=== PATIENT | female | born 1985 | race Caucasian/White ===

== ENCOUNTER 2017-10-16 11:04 | Emergency (ER) | payer OTHER ==
[~2017-10-16] VITALS: Ht 165.1 cm; Wt 119.3 kg
[~2017-10-16 11:04] MED LIST: AMITRIPTYLINE H10 MG PO; AMITRIPTYLINE H50 MG PO; CYCLOBENZAPRINE10 MG PO; FLUOXETINE HCL40 MG PO; IBUPROFEN800 MG PO; MELOXICAM15 MG PO; ONDANSETRON ODT8 MG PO; PROZAC10 MG PO; [UNRECOGNIZED DRUG - REMARK] PO
[2017-10-16] MEDS ORDERED: ULTRAM50 MG PO (11:20)
--- OUTSIDE RECORDS SUMMARY | 2017-10-16 11:37 | XMS ---
Demographics + + + | Address | [address] | | | [place] [address] | + + + | Preferred Language | Unknown | + + + | Marital Status | Unknown | + + + | Catholic Affiliation | Unknown | + + + | Race | Unknown | + + + | Ethnic Group | Unknown | + + + Author + + + | Author | [facility] | + + + | Organization | [facility] | + + + | Address | [address] | | | [place] [address] | + + + | Phone | | + + + Care Team Providers + + + + | Care Battery Service Technician Name | Role | Phone | + + + + Unavailable | Unavailable | + + + + PROBLEMS + + + + + + + + | Type | Condition | ICD9-CM | [id number] | Onset | Condition | SNOMED | | | | Code | Code | Dates | Status | Code | + + + + + + + + | Problem | Breakthrou | N92.1 | | | Active | [id number] | | | gh | | | | | | | | bleeding | | | | | | + + + + + + + + | Problem | Acute | 462 | | | Active | [id number] | | | pharyngiti | | | | | | | | s NOS | | | | | | + + + + + + + + | Assessment | Strep | J02.0 | | 10 Feb, | Active | [id number] | | | throat | | | 2016 | | | + + + + + + + + | Problem | UTI | 599.0 | | | Active | [id number] | | | [Urinary | | | | | | | | tract | | | | | | | | infection] | | | | | | + + + + + + + + | Assessment | Sore | J02.9 | | Feb, | Active | [id number] | | | throat | | | 2016 | | | + + + + + + + + ALLERGIES + + + + +--------+ | Substance | Reaction | Event Type | Date | Status | + + + + +--------+ | codiene | hives, SOB | Drug Allergy | Feb, | Active | + + + + +--------+ | Penicillin | SOB | Drug Allergy | Feb, | Active | + + + + +--------+ SOCIAL HISTORY No smoking Hx information available PLAN OF CARE VITAL SIGNS + + + + | Height | 64.5 in | 2017-03-08 | + + + + | Weight | 267.9 lbs | 2017-03-08 | + + + + | BMI | 45.27 kg/m2 | 2017-03-08 | + + + + | Temperature | 97.7 degrees Fahrenheit | 2017-03-08 | + + + + | Heart Rate | 100 /min | 2017-03-08 | + + + + | Blood pressure systolic | 135 mm Hg | 2017-03-08 | + + + + | Blood pressure diastolic | 85 mm Hg | 2017-03-08 | + + + + MEDICATIONS + + + + + + + +--------+ | Medicati | Instruct | Dosage | Frequenc | Start | End Date | Duration | Status | | on | ions | | y | Date | | | | + + + + + + + +--------+ | Amitript | Orally | 1 tablet | | | | | Active | | yline | qhs | | | | | | | | HCl 50 | | | | | | | | | mg | | | | | | | | + + + + + + + +--------+ | Nexplano | | | | | | | Active | | n 68 MG | | | | | | | | + + + + + + + +--------+ | Fluoxeti | Orally | 1 | 24h | | | 30 days | Active | | ne HCl | Once a | capsule | | | | | | | 20 MG | day | | | | | | | + + + + + + + +--------+ | Zithroma | Orally | 2 | 24h | 10 Apr, | 15 Apr, | 5 day(s) | Active | | x Z-Erick | Once a | tablets | | 2017 | 2017 | | | | 250 MG | day | on the | | | | | | | | | first | | | | | | | | | day, | | | | | | | | | then 1 | | | | | | | | | tablet | | | | | | | | | daily | | | | | | | | | for 4 | | | | | | | | | days | | | | | | + + + + + + + +--------+ RESULTS + +--------+------+ + | Name | Result | Date | Reference Range | + +--------+------+ + | Strep Gp A Rapid | | | | | (IH) | | | | + +--------+------+ + PROCEDURES + + + + + | Procedure | Date Ordered | Related Diagnosis | Body Site | + + + + + | STREP A ASSAY | March 08, 2017 | | | | W/OPTIC | | | | + + + + + | Est Level III | March 08, 2017 | | | | Intermediate | | | | + + + + + IMMUNIZATIONS No Known Immunizations"
--- OUTSIDE RECORDS SUMMARY | 2017-10-16 11:37 | XMS ---
Demographics + + + | Address | [address] | | | [place] [address] | + + + | Preferred Language | Unknown | + + + | Marital Status | Unknown | + + + | Faith Affiliation | Unknown | + + + | Race | Unknown | + + + | Ethnic Group | Unknown | + + + Author + + + | Author | [facility] | + + + | Organization | [facility] | + + + | Address | [address] | | | [place] [address] | + + + | Phone | | + + + Care Team Providers + + + + | Care Assistant Winemaker Name | Role | Phone | + + + + Unavailable | Unavailable | + + + + PROBLEMS +---------+ + + +--------+ + + | Type | Condition | ICD9-CM | [id number] | Onset | Condition | SNOMED | | | | Code | Code | Dates | Status | Code | +---------+ + + +--------+ + + | Problem | Breakthrou | N92.1 | | | Active | [id number] | | | gh | | | | | | | | bleeding | | | | | | +---------+ + + +--------+ + + | Problem | Acute | 462 | | | Active | [id number] | | | pharyngiti | | | | | | | | s NOS | | | | | | +---------+ + + +--------+ + + | Problem | UTI | 599.0 | | | Active | [id number] | | | [Urinary | | | | | | | | tract | | | | | | | | infection] | | | | | | +---------+ + + +--------+ + + ALLERGIES + + + + +--------+ | Substance | Reaction | Event Type | Date | Status | + + + + +--------+ | codiene | hives, SOB | Drug Allergy | Feb, | Active | + + + + +--------+ | Penicillin | SOB | Drug Allergy | Feb, | Active | + + + + +--------+ | Zithromax | itcing | Drug Allergy | Feb, | Active | + + + + +--------+ SOCIAL HISTORY No smoking Hx information available PLAN OF CARE VITAL SIGNS MEDICATIONS Unknown Medications RESULTS No Results PROCEDURES No Known procedures IMMUNIZATIONS No Known Immunizations"
--- OUTSIDE RECORDS SUMMARY | 2017-10-16 11:38 | XMS ---
Demographics + + + | Address | [address] | | | [place] [address] | + + + | Preferred Language | Unknown | + + + | Marital Status | Unknown | + + + | Protestant Affiliation | Unknown | + + + | Race | Unknown | + + + | Ethnic Group | Unknown | + + + Author + + + | Author | [facility] | + + + | Organization | [facility] | + + + | Address | [address] | | | [place] [address] | + + + | Phone | | + + + Care Team Providers + + + + | Care Bag Loader Machine Operator Name | Role | Phone | + + + + Unavailable | Unavailable | + + + + PROBLEMS +---------+ + + +--------+ + + | Type | Condition | ICD9-CM | [id number] | Onset | Condition | SNOMED | | | | Code | Code | Dates | Status | Code | +---------+ + + +--------+ + + | Problem | Breakthrou | N92.1 | | | Active | [id number] | | | gh | | | | | | | | bleeding | | | | | | +---------+ + + +--------+ + + | Problem | Acute | 462 | | | Active | [id number] | | | pharyngiti | | | | | | | | s NOS | | | | | | +---------+ + + +--------+ + + | Problem | UTI | 599.0 | | | Active | [id number] | | | [Urinary | | | | | | | | tract | | | | | | | | infection] | | | | | | +---------+ + + +--------+ + + ALLERGIES Unknown Allergies SOCIAL HISTORY No smoking Hx information available PLAN OF CARE VITAL SIGNS MEDICATIONS Unknown Medications RESULTS No Results PROCEDURES No Known procedures IMMUNIZATIONS No Known Immunizations"
--- OUTSIDE RECORDS SUMMARY | 2017-10-16 11:38 | XMS ---
Demographics + + + | Address | [address] | | | [place] [address] | + + + | Preferred Language | Unknown | + + + | Marital Status | Unknown | + + + | Scientology Affiliation | Unknown | + + + | Race | Unknown | + + + | Ethnic Group | Unknown | + + + Author + + + | Author | [facility] | + + + | Organization | [facility] | + + + | Address | [address] | | | [place] [address] | + + + | Phone | | + + + Care Team Providers + + + + | Care Piecer Up Name | Role | Phone | + + + + Unavailable | Unavailable | + + + + PROBLEMS +---------+ + + +--------+ + + | Type | Condition | ICD9-CM | [id number] | Onset | Condition | SNOMED | | | | Code | Code | Dates | Status | Code | +---------+ + + +--------+ + + | Problem | Breakthrou | N92.1 | | | Active | [id number] | | | gh | | | | | | | | bleeding | | | | | | +---------+ + + +--------+ + + | Problem | Acute | 462 | | | Active | [id number] | | | pharyngiti | | | | | | | | s NOS | | | | | | +---------+ + + +--------+ + + | Problem | UTI | 599.0 | | | Active | [id number] | | | [Urinary | | | [...]
--- OUTSIDE RECORDS SUMMARY | 2017-10-16 11:38 | XMS ---
Demographics + + + | Address | [address] | | | [place] [address] | + + + | Preferred Language | Unknown | + + + | Marital Status | Unknown | + + + | Worship Affiliation | Unknown | + + + | Race | Unknown | + + + | Ethnic Group | Unknown | + + + Author + + + | Author | [facility] | + + + | Organization | [facility] | + + + | Address | [address] | | | [place] [address] | + + + | Phone | | + + + Care Team Providers + + + + | Care Area Development Manager Name | Role | Phone | + + + + Unavailable | Unavailable | + + + + PROBLEMS +---------+ + + +--------+ + + | Type | Condition | ICD9-CM | [id number] | Onset | Condition | SNOMED | | | | Code | Code | Dates | Status | Code | +---------+ + + +--------+ + + | Problem | Breakthrou | N92.1 | | | Active | [id number] | | | gh | | | | | | | | bleeding | | | | | | +---------+ + + +--------+ + + | Problem | Acute | 462 | | | Active | [id number] | | | pharyngiti | | | | | | | | s NOS | | | | | | +---------+ + + +--------+ + + | Problem | UTI | 599.0 | | | Active | [id number] | | | [Urinary | | | [...]
--- OUTSIDE RECORDS SUMMARY | 2017-10-16 11:38 | XMS ---
Demographics + + + | Address | [address] | | | [place] [address] | + + + | Preferred Language | Unknown | + + + | Marital Status | Unknown | + + + | Yarsani Affiliation | Unknown | + + + | Race | Unknown | + + + | Ethnic Group | Unknown | + + + Author + + + | Author | [facility] | + + + | Organization | [facility] | + + + | Address | [address] | | | [place] [address] | + + + | Phone | | + + + Care Team Providers + + + + | Care Office Services Coordinator Name | Role | Phone | + + + + Unavailable | Unavailable | + + + + PROBLEMS +---------+ + + +--------+ + + | Type | Condition | ICD9-CM | [id number] | Onset | Condition | SNOMED | | | | Code | Code | Dates | Status | Code | +---------+ + + +--------+ + + | Problem | Breakthrou | N92.1 | | | Active | [id number] | | | gh | | | | | | | | bleeding | | | | | | +---------+ + + +--------+ + + | Problem | Acute | 462 | | | Active | [id number] | | | pharyngiti | | | | | | | | s NOS | | | | | | +---------+ + + +--------+ + + | Problem | UTI | 599.0 | | | Active | [id number] | | | [Urinary | | | | | | | | tract | | | | | | | | infection] | | | | | | +---------+ + + +--------+ + + ALLERGIES No Information SOCIAL HISTORY Never Assessed PLAN OF CARE VITAL SIGNS MEDICATIONS Unknown Medications RESULTS No Results PROCEDURES No Known procedures IMMUNIZATIONS No Known Immunizations MEDICAL (GENERAL) HISTORY + + +---------+ | Type | Description | Date | + + +---------+ | Medical History | Bipolar/Depression - no | | | | meds at present | | + + +---------+ | Medical History | Chronic Pelvic pain since | | | | 2009 post last delivery | | + + +---------+ | Medical History | Chronic Low Back pain since | | | | 2009 - x-ray Lumbar spine | | | | 01/11/17: no pathology, | | | | weight gain of 120lbs since | | | | 2009 | | + + +---------+ | Medical History | Morbid Obesity | | + + +---------+ | Medical History | hx/o DM reported by | | | | patient. dx'ed age 20 (on | | | | insulin age [age]) - not on | | | | any medication HbA1c 5.3 | | | | 02/01/17 | | + + +---------+ | Surgical History | x 1 | 2009 | + + +---------+ | Surgical History | Appendectomy (just before | 2008 | | | ) | | + + +---------+ | Surgical History | Tonsilectomy | 1995 | + + +---------+ | Surgical History | Laparoscopic excision of | 02/04/17 | | | endormetriosis, Dr Abarca | | + + +---------+ | Hospitalization History | [facility] re: abdominal pain | 01/27/17 | + + +---------+ | Hospitalization History | [facility] re: | 07/19/17 | | | pharyngitis | | + + +---------+"
--- OUTSIDE RECORDS SUMMARY | 2017-10-16 11:43 | XMS ---
Demographics + + + | Address | [address] | | | [place] [address] | + + + | Preferred Language | Unknown | + + + | Marital Status | Unknown | + + + | Scientology Affiliation | Unknown | + + + | Race | Unknown | + + + | Ethnic Group | Unknown | + + + Author + + + | Author | [facility] | + + + | Organization | [facility] | + + + | Address | [address] | | | [place] [address] | + + + | Phone | [phone] | + + + Care Team Providers + + + + | Care Cost Clerk Name | Role | Phone | + + + + Unavailable | Unavailable | + + + + PROBLEMS + + + + + + + + | Type | Condition | ICD9-CM | [id number] | Onset | Condition | SNOMED | | | | Code | Code | Dates | Status | Code | + + + + + + + + | Problem | Breakthrou | N92.1 | | | Active | [id number] | | | gh | | | | | | | | bleeding | | | | | | + + + + + + + + | Problem | Acute | 462 | | | Active | [id number] | | | pharyngiti | | | | | | | | s NOS | | | | | | + + + + + + + + | Assessment | Encounter | | Z31.69 | 17 Feb, | Active | [id number] | | | for other | | | 2016 | | | | | general | | | | | | | | counseling | | | | | | | | and | | | | | | | | advice on | | | | | | | | procreatio | | | | | | | | n | | | | | | + + + + + + + + | Problem | UTI | 599.0 | | | Active | [id number] | | | [Urinary | | | | | | | | tract | | | | | | | | infection] | | | | | | + + + + + + + + | Assessment | Nexplanon | Z30.46 | | Feb, | Active | [id number] | | | removal | | | 2016 | | | [...] + | Height | 64.5 in | 2017-03-15 | + + + + | Weight | 268.5 lbs | 2017-03-15 | + + + + | BMI | 45.37 kg/m2 | 2017-03-15 | + + + + | Temperature | 98.7 degrees Fahrenheit | 2017-03-15 | + + + + | Heart Rate | 92 /min | 2017-03-15 | + + + + | Blood pressure systolic | 133 mm Hg | 2017-03-15 | + + + + | Blood pressure diastolic | 81 mm Hg | 2017-03-15 | + + + + MEDICATIONS + + + + +--------+ + +--------+ | Medicati | Instruct | Dosage | Frequenc | Start | End Date | Duration | Status | | on | ions | | y | Date | | | | + + + + +--------+ + +--------+ | Amitript | Orally | 1 tablet | | | | | Active | | yline | qhs | | | | | | | | HCl 50 | | | | | | | | | mg | | | | | | | | + + + + +--------+ + +--------+ | Fluoxeti | Orally | 1 | 24h | | | 30 days | Active | | ne HCl | Once a | capsule | | | | | | | 20 MG | day | | | | | | | + + + + +--------+ + +--------+ RESULTS No Results PROCEDURES + + + + + | Procedure | Date Ordered | Related Diagnosis | Body Site | + + + + + | REMOVE DRUG IMPLANT | March 15, 2017 | | | | DEVICE | | | | + + + + + | Est Level III | March 15, 2017 | | | | Intermediate | | | | + + + + + | DOC MEDS VERIFIED | March 15, 2017 | | | | W/PT OR RE | | | | + + + + + | DSCHRG MED/CURRENT | March 15, 2017 | | | | MED MERGE | | | | + + + + + | TOBACCO NON-USER | March 15, 2017 | | | + + + + + IMMUNIZATIONS No Known Immunizations"
== END 2017-10-16 14:36 | disposition home or self-care (01) ==
LOC: ED 11:04
DX: N80.9 Endometriosis, unspecified (principal); R10.2 Pelvic and perineal pain; Z90.49 Acquired absence of other specified parts of digestive tract; Z98.890 Other specified postprocedural states; Z88.0 Allergy status to penicillin; Z88.5 Allergy status to narcotic agent; Z79.899 Other long term (current) drug therapy
CPT/HCPCS: 81001; 84703; 96372; 99283; J1885

== ENCOUNTER 2017-11-09 18:07 | Emergency (ER) | payer OTHER ==
[~2017-11-09] VITALS: Ht 165.1 cm; Wt 125.2 kg
[~2017-11-09 18:07] MED LIST changes: +ULTRAM50 MG PO
[2017-11-09] MEDS ORDERED: DIVALPROEX SOD250 MG PO (18:22)
[2017-11-09] MEDS ORDERED: VENTOLIN HFA18 GM INH (18:23)
[2017-11-09] MEDS ORDERED: NORETHINDRONE AC5 MG PO (18:23)
[2017-11-09] MEDS ORDERED: METHYLPREDNISOLO4 M1 PO (18:25)
[2017-11-09] MEDS ORDERED: ZITHROMAX250 MG PO (18:25)
== END 2017-11-09 18:28 | disposition home or self-care (01) ==
LOC: ED 18:07
DX: J40 Bronchitis, not specified as acute or chronic (principal); Z88.0 Allergy status to penicillin; Z88.5 Allergy status to narcotic agent; Z79.899 Other long term (current) drug therapy; Z90.49 Acquired absence of other specified parts of digestive tract; Z79.52 Long term (current) use of systemic steroids
CPT/HCPCS: 99283

== ENCOUNTER 2017-12-22 21:49 | Emergency (ER) | payer OTHER ==
[~2017-12-22] VITALS: Ht 165.1 cm; Wt 128.4 kg
[~2017-12-22 21:49] MED LIST changes: +DIVALPROEX SOD250 MG PO; +METHYLPREDNISOLO4 M1 PO; +NORETHINDRONE AC5 MG PO; +VENTOLIN HFA18 GM INH; +ZITHROMAX250 MG PO
[2017-12-23] MEDS ORDERED: OMEPRAZOLE20 MG PO (01:15)
== END 2017-12-23 01:26 | disposition home or self-care (01) ==
LOC: ED 21:49
DX: K30 Functional dyspepsia (principal); E11.9 Type 2 diabetes mellitus without complications; Z87.891 Personal history of nicotine dependence; Z88.0 Allergy status to penicillin; Z88.5 Allergy status to narcotic agent
CPT/HCPCS: 74177; 80053; 81001; 83690; 84703; 85025; 96361; 96374; 96375; 99284; J2405; J7030; Q9967

== ENCOUNTER 2018-01-15 12:54 | Emergency (ER) | payer OTHER ==
[~2018-01-15] VITALS: Ht 165.1 cm; Wt 128.4 kg
[~2018-01-15 12:54] MED LIST changes: +OMEPRAZOLE20 MG PO
[2018-01-15] MEDS ORDERED: LAMOTRIGINE25 MG PO (13:25)
[2018-01-15] MEDS ORDERED: SERTRALINE HCL50 MG PO (13:25)
[2018-01-15] MEDS ORDERED: ONDANSETRON ODT8 MG PO (13:25)
[2018-01-15] MEDS ORDERED: NORCO 5-325 TA1 EACH PO (13:26)
[2018-01-15] MEDS ORDERED: TRAZODONE HCL50 MG PO (13:26)
[2018-01-15] MEDS ORDERED: ZOFRAN ODT4 MG PO (15:15)
[2018-01-15] MEDS ORDERED: PERCOCET 5-3251 EACH PO (15:15)
== END 2018-01-15 15:23 | disposition home or self-care (01) ==
LOC: ED 12:54
DX: E28.2 Polycystic ovarian syndrome (principal); E11.9 Type 2 diabetes mellitus without complications; J45.909 Unspecified asthma, uncomplicated; F31.9 Bipolar disorder, unspecified; Z87.891 Personal history of nicotine dependence; Z90.49 Acquired absence of other specified parts of digestive tract; Z90.89 Acquired absence of other organs; Z88.0 Allergy status to penicillin; Z88.5 Allergy status to narcotic agent; Z79.899 Other long term (current) drug therapy
CPT/HCPCS: 76830; 76856; 81001; 84703; 96372; 99284; J1170

== ENCOUNTER 2018-01-20 08:45 | Day surgery (SDC) | payer OTHER ==
[~2018-01-20] VITALS: Ht 165.1 cm; Wt 128.4 kg
[~2018-01-20 08:45] MED LIST changes: +LAMOTRIGINE25 MG PO; +NORCO 5-325 TA1 EACH PO; +PERCOCET 5-3251 EACH PO; +SERTRALINE HCL50 MG PO; +TRAZODONE HCL50 MG PO; +ZOFRAN ODT4 MG PO
--- NOTE | 2018-01-20 14:11 | NUR ---
01/20/18 1411 Cornelia Moraes 1333 PT ARRIVED RESP EVEN AND UNLABORED. PT ASLEEP AND MAINTAIN OWN AIRWAY. REPORT FROM CASTING WHEEL OPERATOR HELPER. 1343 PT WOKE UP AND STARTED CRYING, REPORTS 10/10 PAIN. O2 REMOVED O2 SAT 100%. 1344 PAIN MEDICAIOTN GIVEN PER EMAR. 1345 MD AT BEDSIDE. PT REPORTS NAUSEA. 1346 NAUSEA MEDICAITON PER EMAR. 1350 PT REPORTS NO CHANGE IN PAIN. O2 SAT DECREASED TO 90%, NC PLACED ON PT AT 2L VIA NC. O2 SAT INCREASED TO 95%. PAIN MEDICAITON PER EMAR. 1402 PT REPORTS FEELING NAUSEA AND NEEDING TO VOID 1407 PT ON BEDPAN AND REPORTS A DECREASE IN NAUSEA. 1410 PT OFF BEDPAN, DID NOT VOID. EMAR.
[2018-01-20] MEDS ORDERED: NORCO 5-325 TA1 EACH PO (15:29)
[2018-01-20] MEDS ORDERED: IBUPROFEN800 MG PO (15:33)
--- NOTE | 2018-01-20 16:17 | NUR ---
1445: PATIENT BACK IN DAY SURGERY ROOM. VS CHECKED. PATIENT'S O2 SAT 100%. O2 REMOVED FROM PATIENT. ABDOMINAL SCOPE SITES X 3 WITH SMALL AMOUNTS OF DRAINAGE ON BANDAIDS. PERIPAD IN PLACE WITH NO DRAINAGE. SCDs ON. IV SITE WNL. CALL LIGHT WITHIN REACH. 1510: PATIENT ASSISTED OOB AND TO BATHROOM. VOID WITHOUT DIFFICULTY. GAIT STEADY. PATIENT MEDICATED FOR PAIN WITH 2 TABS OF NORCO. TOLERATED JELLO X 2. 1555: VS CHECKED. PATIENT UP TO BATHROOM INDEPENDENTLY. GAIT STEADY. STATES READY TO GO HOME. IV DC'D WNL. TIP INTACT, DRESSING APPLIED. DISCHARGE INSTRUCTIONS GIVEN TO PATIENT AND MOTHER. PATIENT GETTING DRESSED. 1600: PATIENT DISCHARGED TO HOME WITH MOTHER VIA WHEELCHAIR.
--- NOTE | 2018-01-26 14:20 | OR ---
[facility] [address] [place], [place] [address] Signed DATE OF OPERATION: 01/20/2018 SURGEON: Ry Abarca MD The patient of Dr. Abarca. PREOPERATIVE DIAGNOSES: Pelvic pain and endometriosis. POSTOPERATIVE DIAGNOSES: Pelvic pain and left ovarian adhesions. PROCEDURE: Laparoscopic left salpingo-oophorectomy and cystoscopy. ARTIST AND REPERTOIRE MANAGER: Dr. Nogueira. ANESTHESIA: General. ESTIMATED BLOOD LOSS: 20 mL. SPECIMENS: Left tube and ovary. DRAINS: None. FINDINGS: Normal cervix. Normal size and shaped uterus. The anterior and posterior cul-de-sacs were free of any endometriosis or adhesions. The left ovary was elongated, stretched up cephalad past the pelvic brim with some filmy adhesions along the medial aspect of the ovary onto the left colon. The left fallopian tube was extended along side the ovary, but had no other adhesions. Had normal-appearing fimbriated end. The right tube was normal in length and with normal pink fimbriated end, and no adhesions. Right ovary has normal size and shape without any evidence of endometriosis or adhesions. The rest of the pelvis was free of any masses or adhesions. Electronically Signed By: RY ABARCA MD 01/26/18 1420 PATIENT NAME: ANJEL TABOR OPERATIVE REPORT DATE OF : 89 REPORT #: [id number] PHYSICIAN: RY ABARCA MD PCP: NO PRIMARY CARE PHYSICIAN REPORT IS CONFIDENTIAL AND NOT TO BE RELEASED WITHOUT AUTHORIZATION [facility] [address], [place] [address] Signed DESCRIPTION OF PROCEDURE: The patient was brought to the operating room, placed in supine position. After adequate general anesthesia was obtained, was placed in a dorsal lithotomy position, and prepped and draped in usual sterile fashion. A weighted speculum was placed in the vagina and anterior lip of cervix was grasped with an Allis clamp. Uterine cavity was sounded to 8 cm and the cervix dilated up to #7-Romanian dilator. The Hulka clamp was carefully introduced through the cervix into the uterus and attached to the anterior lip of the cervix after removing the Allis clamp. The Allis clamp and retractor were removed from the vagina. The Martinez catheter was placed in the bladder. Attention was then drawn to the abdomen. A small infraumbilical skin incision was made with a scalpel after injecting the area with 0.5% plain Marcaine. Subcutaneous tissue was dissected with Metzenbaum scissors. Even just below the umbilicus, the tissue was quite deep and it took a while to identify the fascia just below the umbilicus. Once this was identified, it was grasped with hemostats, elevated, nicked with Metzenbaum scissors, and extended in transverse fashion using Metzenbaum scissors. A finger dissection was used to open the peritoneum. This was also somewhat difficult because of how deep this was. Retention stitches of #0 Vicryl suture placed above and below the incision, and then the Nikki cannula and sleeve entered the abdomen and tied in place using retention stitches as the abdomen was filled. The trocar seemed to be too short and so was not completely in the abdomen and was inflating the gas retroperitoneally. So, this was stopped and the gas allowed to escape. More finger dissection was done and the S retractor inserted into the incision and spun in 360 degree fashion showing that we were now in the abdomen, and the S retractor was lifted up to compress the abdominal wall and the sleeve. The trocar and sleeve again placed in the abdomen and tied in place with the retention stitches. The trocar was removed and laparoscope used to enter the abdomen, and the S retractor removed. With laparoscope in the sleeve, the gas could be inflated into the abdomen and so the abdomen was then insufflated with carbon dioxide in this fashion. A small skin incision was made in the left lower quadrant after attempting transillumination making a small skin incision after injecting the area with 0.5% Marcaine and then placing a bladed 5 mm trocar and sleeve into the abdomen under direct visualization. Trocar was removed and blunt probe inserted. A second 5 mm trocar and sleeve were placed on the right side in the same fashion, and the 2nd blunt grasper inserted. The above findings were noted. Two blunt graspers were used to bluntly separate along the avascular adhesions, dropping the colon away from the ovary and elevating the ovary up away from the colon. With much broader space between the ovary and the colon, the infundibulopelvic ligament could be identified and this was also carefully from, and the colon dropped away and bluntly brought down away from the infundibulopelvic ligament. An attempt was made to find the ureter going over the pelvic brim, but because of the adipose tissue could not be seen that the infundibulopelvic ligament was up high in the pelvis and it appeared to be away from the Electronically Signed By: YR ABARCA MD 01/26/18 1420 PATIENT NAME: ANJEL TABOR OPERATIVE REPORT DATE OF : 89 REPORT #: [id number] PHYSICIAN: RY ABARCA MD PCP: NO PRIMARY CARE PHYSICIAN REPORT IS CONFIDENTIAL AND NOT TO BE RELEASED WITHOUT AUTHORIZATION [facility] [address], [place] [address] Signed ureter. The infundibulopelvic ligament was then cauterized in several places adjacent to the ovary taking care to stay away from the bowel. With infundibulopelvic ligament cauterized, the utero-ovarian ligament was then identified, cauterized in several places, and cut. All the cautery and cutting were done with Jesika forceps and the LigaSure bipolar cautery forceps. Once in the utero-ovarian ligament, then the fallopian tube was cauterized and cut. The tube and ovary were gently brought cephalad and medial, and the peritoneum between the tube and ovary and the sidewall were cauterized and cut along the ovary until again reaching the previously cauterized infundibulopelvic ligament. The infundibulopelvic ligament was then isolated with ovary lifted up anteriorly. This pedicle was cauterized again and cut free. A loop of #0 Monocryl was then placed over the infundibulopelvic ligament, tightened in place, tied, cut with laparoscopic scissors. There was some bleeding along the peritoneal edge and this was cauterized along its length with bipolar cautery forceps. At this point, good hemostasis was noted. The entire pelvis was irrigated, suctioned, examined, and noted to have good hemostasis. A 5 mm laparoscope was then placed in the left side and the laparoscope removed, and laparoscopic collection bag was placed through the infraumbilical incision and the left tube and ovary placed in the bag. The bag was tightened and then pulled up to the Clay sleeve and the Nikki cannula removed, and the bag with the tube and ovary also removed through the incision. The cannula was placed back into the abdomen by placing the 10 mm scope through the sleeve and using the scope as the trocar and watching with the 5 mm scope to make sure that this was back in the correct position. Again, the sleeve was held in place with the retention stitches. Entire pelvis again irrigated, suctioned, and examined. Good hemostasis was noted. Evicel was then used to place on the infundibulopelvic ligament, the utero-ovarian ligament, pedicle, and along the peritoneal edge to further help with hemostasis. All instruments were then removed. Final sleeve removed. The fascia was identified and closed with a running stitch of #0 Vicryl suture. The remaining Evicel was placed in the infundibulopelvic incision because of the deepness and there had been some bleeding earlier, but there was none toward the end of the procedure. The 3-0 Vicryl stitch was placed in the deep subcutaneous tissue and the infundibulopelvic ligament. The three skin incisions were closed using 4-0 Vicryl in subcuticular stitches. Nikki cannula was removed and the cervix noted to have good hemostasis. Balloon was drained and the Martinez catheter removed. A 70-degree cystoscope was placed in the urethra and entered the bladder under direct visualization. Sterile water was used as distending medium. Bladder was inspected and both ureteral openings were noted to have good flow of urine. The cystoscope was then removed. The bladder drained. The patient tolerated the procedure well, went to recovery room in good condition. Sponge, needle, and instrument count correct at the end of procedure. The left tube and ovary were sent to Pathology for identification. Electronically Signed By: RY ABARCA MD 01/26/18 1420 PATIENT NAME: ANJEL TABOR OPERATIVE REPORT DATE OF : 89 REPORT #: [id number] PHYSICIAN: RY ABARCA MD PCP: NO PRIMARY CARE PHYSICIAN REPORT IS CONFIDENTIAL AND NOT TO BE RELEASED WITHOUT AUTHORIZATION [address] [place] [address] Signed MD RUTHANN Dougherty/MODL /[id number] Copies: ~ Electronically Signed By: RY ABARCA MD 01/26/18 1420 PATIENT NAME: TABORANJELFRANCO HENSON OPERATIVE REPORT DATE OF : 89 REPORT #: [id number] PHYSICIAN: RY ABARCA MD PCP: NO PRIMARY CARE PHYSICIAN REPORT IS CONFIDENTIAL AND NOT TO BE RELEASED WITHOUT AUTHORIZATION
== END 2018-01-20 16:00 | disposition home or self-care (01) ==
LOC: DS 08:45
PROVIDERS: General Practice
PROC: 0UT64ZZ Resection of Left Fallopian Tube, Percutaneous Endoscopic Approach (ICD-10-PCS; 2018-01-20)
PROC: 0UT14ZZ Resection of Left Ovary, Percutaneous Endoscopic Approach (ICD-10-PCS; principal; 2018-01-20 11:00)
DX: N80.2 Endometriosis of fallopian tube (principal); N83.02 Follicular cyst of left ovary; G89.29 Other chronic pain; M54.5 Low back pain; E66.01 Morbid (severe) obesity due to excess calories; E11.9 Type 2 diabetes mellitus without complications; Z90.49 Acquired absence of other specified parts of digestive tract; Z90.89 Acquired absence of other organs; Z98.890 Other specified postprocedural states; Z88.0 Allergy status to penicillin; Z88.5 Allergy status to narcotic agent; Z68.42 Body mass index [BMI] 45.0-49.9, adult; Z79.899 Other long term (current) drug therapy
CPT/HCPCS: 00910; 88305; 94640; J0131; J0330; J1100; J1885; J2250; J2370; J2405; J2704; J3010; J3475; J7120

== ENCOUNTER 2018-01-22 17:06 | Emergency (ER) | payer OTHER ==
[~2018-01-22] VITALS: Ht 165.1 cm; Wt 128.4 kg
[2018-01-22] MEDS ORDERED: PERCOCET 5-3251 EACH PO ×2 (17:27→19:29)
== END 2018-01-22 19:49 | disposition home or self-care (01) ==
LOC: ED 17:06
DX: G89.18 Other acute postprocedural pain (principal); R10.32 Left lower quadrant pain; E11.9 Type 2 diabetes mellitus without complications; F31.9 Bipolar disorder, unspecified; J45.909 Unspecified asthma, uncomplicated; Z87.891 Personal history of nicotine dependence; Z88.0 Allergy status to penicillin; Z88.5 Allergy status to narcotic agent; Z88.1 Allergy status to other antibiotic agents; Z79.899 Other long term (current) drug therapy; Z90.721 Acquired absence of ovaries, unilateral
CPT/HCPCS: 76830; 76856; 81001; 85025; 96374; 96375; 99284; J1170; J1885; J2405; J7030

== ENCOUNTER 2018-04-27 17:35 | Emergency (ER) | payer OTHER ==
[~2018-04-27] VITALS: Ht 165.1 cm; Wt 117.9 kg
[2018-04-27] MEDS ORDERED: TRAMADOL HCL50 MG PO (23:35)
== END 2018-04-27 23:47 | disposition home or self-care (01) ==
LOC: ED 17:35
DX: R10.2 Pelvic and perineal pain (principal); E11.9 Type 2 diabetes mellitus without complications; F31.9 Bipolar disorder, unspecified; J45.909 Unspecified asthma, uncomplicated; Z87.891 Personal history of nicotine dependence; Z88.0 Allergy status to penicillin; Z88.5 Allergy status to narcotic agent; Z88.1 Allergy status to other antibiotic agents; Z79.899 Other long term (current) drug therapy
CPT/HCPCS: 74176; 80053; 81001; 83690; 84703; 85025; 99284

== ENCOUNTER 2018-06-22 19:28 | Emergency (ER) | payer OTHER ==
[~2018-06-22] VITALS: Ht 165.1 cm; Wt 117.9 kg
[~2018-06-22 19:28] MED LIST changes: +TRAMADOL HCL50 MG PO
[2018-06-22] MEDS ORDERED: OXCARBAZEPINE150 MG PO (19:47)
== END 2018-06-22 23:04 | disposition home or self-care (01) ==
LOC: ED 19:28
DX: O20.0 Threatened abortion (principal); O99.331 Smoking (tobacco) complicating pregnancy, first trimester; F17.200 Nicotine dependence, unspecified, uncomplicated; O99.341 Other mental disorders complicating pregnancy, first trimester; F31.9 Bipolar disorder, unspecified; O99.511 Diseases of the respiratory system complicating pregnancy, first trimester; J45.909 Unspecified asthma, uncomplicated; Z3A.01 Less than 8 weeks gestation of pregnancy; Z88.0 Allergy status to penicillin; Z88.5 Allergy status to narcotic agent; Z88.1 Allergy status to other antibiotic agents; Z79.899 Other long term (current) drug therapy
CPT/HCPCS: 76801; 76817; 80053; 84702; 85025; 86900; 86901; 99284

== ENCOUNTER 2018-08-11 21:44 | Emergency (ER) | payer OTHER ==
[~2018-08-11] VITALS: Ht 165.1 cm; Wt 115.2 kg
--- OUTSIDE RECORDS SUMMARY | ~2018-08-11 | XMS | Clinical Summary ---
Demographics + + + | Address | [address] | | | [place] [address] | + + + | Home Phone | | + + + | Preferred Language | Unknown | + + + | Marital Status | Single | + + + | Restorationist Affiliation | Unknown | + + + | Race | Unknown | + + + | Ethnic Group | Unknown | + + + Author + + + | Author | [facility] | | | and [place] | + + + | Organization | [facility] | | | and [place] | + + + | Address | Unknown | + + + | Phone | Unavailable | + + + Support + + +---------+ + | Name | Relationship | Address | Phone | + + +---------+ + | Milana Vale | ECON | Unknown | | + + +---------+ + Care Team Providers + +------+ + | Care Arc Cutter Plasma Arc Name | Role | Phone | + +------+ + | Liliana Ibrahim MD | PP | | + +------+ + Allergies + + + + + + | Active Allergy | Reactions | Severity | Noted | Comments | | | | | Date | | + + + + + + | Codeine | Shortness Of Breath | High | 06/18/20 | | | | | | 17 | | + + + + + + | Ibuprofen | | | 05/01/20 | Ulcers | | | | | 18 | | + + + + + + | Penicillins | Hives | | 06/18/20 | | | | | | 17 | | + + + + + + | Valproic Acid | Itching | Low | 12/31/19 | | | | | | 18 | | + + + + + + Current Medications + + +---------+---------+------+------+-------+ | Prescription | Sig. | Disp. | Refills | Star | End | Statu | | | | | | t | Date | s | | | | | | Date | | | + + +---------+---------+------+------+-------+ | albuterol 90 | Inhale 2 puffs into | 1 | 0 | 10/2 | | Activ | | mcg/puff inhaler | the lungs every 4 | Inhaler | | 8 | | e | | | hours as needed for | | | 17 | | | | | Wheezing or | | | | | | | | Shortness of Breath. | | | | | | | | Use with spacer | | | | | | | | device. | | | | | | + + +---------+---------+------+------+-------+ | sertraline | Take 25 mg by mouth | | | | | Activ | | (ZOLOFT) 25 mg | Daily. | | | | | e | | tablet | | | | | | | + + +---------+---------+------+------+-------+ | lamoTRIgine | take 1 tablet by | | 0 | 10/30 | | Activ | | (LAMICTAL) 25 mg | mouth once daily AT | | | 220 | | e | | tablet | 2ND WEEK AND | | | 17 | | | | | AFTERWARDS TAKE 2 | | | | | | | | tablets EACH DAY | | | | | | + + +---------+---------+------+------+-------+ | beclomethasone | Inhale 2 puffs into | | | 10/29 | 10/29 | Activ | | (QVAR) 40 mcg/puff | the lungs. | | | 8/20 | 8/20 | e | | inhaler | | | | 17 | 18 | | + + +---------+---------+------+------+-------+ | omeprazole | take 1 capsule by | | 0 | 01/2 | | Activ | | (PRILOSEC) 20 mg | mouth once daily | | | 520 | | e | | capsule | | | | 18 | | | + + +---------+---------+------+------+-------+ | | take 1 to 2 tablets | | 0 | 02/1 | | Activ | | oxyCODONE-acetaminop | by mouth every 6 | | | 720 | | e | | hen (PERCOCET) 5-325 | hours if needed for | | | 18 | | | | mg per tablet | pain | | | | | | + + +---------+---------+------+------+-------+ | sertraline | take 1 tablet by | | 0 | 01/3 | | Activ | | (ZOLOFT) 50 mg | mouth once daily | | | 0/20 | | e | | tablet | | | | 18 | | | + + +---------+---------+------+------+-------+ | traZODone | Take 50 mg by mouth. | | | 12/2 | | Activ | | (DESYREL) 50 mg | | | | 7/20 | | e | | tablet | | | | 17 | | | + + +---------+---------+------+------+-------+ | estradiol | Take 2 mg by mouth | | | | | Activ | | (ESTRACE) 2 MG | Daily. | | | | | e | | tablet | | | | | | | + + +---------+---------+------+------+-------+ | QUEtiapine | Take 50 mg by mouth | | | | | Activ | | (SEROQUEL) 50 MG | 2 times daily. | | | | | e | | tablet | | | | | | | + + +---------+---------+------+------+-------+ | traMADol (ULTRAM) | Take 50 mg by mouth | | | | | Activ | | 50 mg tablet | every 6 hours as | | | | | e | | | needed. | | | | | | + + +---------+---------+------+------+-------+ Active Problems No known active problems Encounters +--------+ + + + + | Date | Type | Specialty | Care Team | Description | +--------+ + + + + | 06/23/ | Emergency | | Beau Aquino, | Abnormal vaginal | | 2017 | | | Santosh Payne | bleeding (Primary | | | | | MD Rhona | Dx); Pelvic cramping | +--------+ + + + + from Last 3 Months Social History + +-------+ +--------+------+ | Tobacco Use | Types | Packs/Day | Years | Date | | | | | Used | | + +-------+ +--------+------+ | Never Smoker | | | | | + +-------+ +--------+------+ + +---+---+---+ | Smokeless Tobacco: | | | | | Never Used | | | | + +---+---+---+ + + +---------+ + | Alcohol Use | Drinks/We | oz/Week | Comments | | | ek | | | + + +---------+ + | No | | | | + + +---------+ + + + + | Sex Assigned at | Date Recorded | | | | + + + | Not on file | | + + + Last Filed Vital Signs + + + + | Vital Sign | Reading | Time Taken | + + + + | Blood Pressure | 108/85 | 06/23/2018 213 PDT | + + + + | Pulse | 86 | 06/23/20182029 PDT | + + + + | Temperature | 37.3 C (99.1 F) | 06/23/20182004 PDT | + + + + | Respiratory Rate | 18 | 06/23/20182004 PDT | + + + + | Oxygen Saturation | 96% | 06/23/20182029 PDT | + + + + | Inhaled Oxygen | - | - | | Concentration | | | + + + + | Weight | 113.4 kg (250 lb) | 06/23/20182004 PDT | + + + + | Height | 165.1 cm (5' 5") | 06/23/20182004 PDT | + + + + | Body Mass Index | 41.6 | 06/23/20182004 PDT | + + + + Plan of Treatment + + + + + | Health Maintenance | Due Date | Last Done | Comments | + + + + + | Cervical Cancer | | | | | Screening (Pap) | 8 | | | + + + + + | Vaccine: Influenza | | 09/29/2017 | | | (#1) | 8 | | | + + + + + | Vaccine: | | 09/29/2017 | | | Dtap/Tdap/Td (2 - | 7 | | | | Td) | | | | + + + + + Procedures + +--------+ + + + | Procedure Name | Priori | Date/Time | Associated Diagnosis | Comments | | | ty | | | | + +--------+ + + + | URINALYSIS WITH | STAT | 06/23/2018 | | Results for this | | MICROSCOPIC WITH | | 2217 PDT | | procedure are in the | | CULTURE IF INDICATED | | | | results section. | + +--------+ + + + | HCG, SERUM, QUANT | STAT | 06/23/2018 | | Results for this | | | | 2057 PDT | | procedure are in the | | | | | | results section. | + +--------+ + + + | COMPREHENSIVE | STAT | 06/23/2018 | | Results for this | | METABOLIC PANEL | | 2057 PDT | | procedure are in the | | | | | | results section. | + +--------+ + + + | CBC W/AUTO | STAT | 06/23/2018 | | Results for this | | DIFFERENTIAL | | 2057 PDT | | procedure are in the | | | | | | results section. | + +--------+ + + + | ED INFORMATION | Routin | 06/23/2018 | | | | EXCHANGE | e | 1950 PDT | | | + +--------+ + + + +---+--------+ | | | | | Proced | | | ure | | | Note - | | | Silverio, | | | Lab In | | | | | | Hlseve | | | n - | | | | | | 2017 | | | 1949 | | | PDT | | | Format | | | ting | | | of | | | this | | | note | | | may be | | | | | | differ | | | ent | | | from | | | the | | | origin | | | al.[email or web address] | | | E19:[id number] | | | ANAY | | | | | | [id number] | | | [id number] | | | This | | | patien | | | t has | | | regist | | | ered | | | at the | | | | | | Provid | | | ence | | | [facility] | [facility] | | l | | | Center | | | | | | Emerge | | | ncy | | | Depart | | | ment | | | For | | | more | | | inform | | | ation | | | visit: | | | | | | https: | | | //secu | | | [email or web address] | | | ecarep | | | [email or web address] | | | [email or web address] | | | ent/89 | | | [id number] | | | -54d4- | | | 45e7-9 | | | [id number] | | | [id number] | | | [email or web address] | | | Securi | | | ty | | | Events | | | No | | | recent | | | | | | Securi | | | ty | | | Events | | | | | | curren | | | tly on | | | | | | fileED | | | Care | | | Guidel | | | inesTh | | | ere | | | are | | | curren | | | tly no | | | ED | | | Care | | | Guidel | | | taj | | | in | | | SALIMA | | | for | | | this | | | patien | | | t. | | | Please | | | check | | | your | | | facili | | | ty's | | | medica | | | l | | | record | | | s | | | system | | | .Recen | | | t | | | Emerge | | | ncy | | | Depart | | | ment | | | Visit | | | Summar | | | yAdmit | | | Date | | | Facili | | | ty | | | City | | | State | | | Type | | | Major | | | Type | | | Diagno | | | ses or | | | Chief | | | | | | Compla | | | int | | | Nate | | | 26, | | | 2018 | | | Provid | | | ence | | | [facility] | [place] | | | [place] | | | Emerge | | | ncy | | | Emerge | | | ncy | | | | | | vagina | | | l | | | bleed | | | Nate | | | 25, | | | 2018 | | | [facility] [place] [facility] | | | [place] | | | [place] | | | Emerge | | | ncy | | | Emerge | | | ncy | | | Chief | | | Compla | | | int: | | | VAGINA | | | L | | | BLEEDI | | | NG/1 | | | MONTH | | | PREG | | | Ulices 3, | | | 2018 | | | Provid | | | ence | | | [facility] | [facility] | [place] | | | [place] | | | Emerge | | | ncy | | | Emerge | | | ncy | | | rt | | | side | | | back | | | pain | | | | | | Abdomi | | | nal | | | Pain | | | | | | Flank | | | Pain | | | | | | Unspec | | | ified | | | abdomi | | | nal | | | pain | | | May | | | 31, | | | 2018 | | | Provid | | | ence | | | [facility] | [facility] | [place] | | | [place] | | | Emerge | | | ncy | | | Emerge | | | ncy | | | | | | Pelvic | | | Pain | | | | | | Abdomi | | | nal | | | Pain | | | | | | Pelvic | | | and | | | perine | | | al | | | pain | | | May | | | 30, | | | 2018 | | | [facility] [place] [facility] | | | [place] | | [place] | | | Emerge | | | ncy | | | Emerge | | | ncy | | | | | | Pelvic | | | and | | | perine | | | al | | | pain | | | | | | Unspec | | | ified | | | asthma | | | , | | | uncomp | | | licate | | | d | | | Type 2 | | | | | | diabet | | | es | | | mellit | | | us | | | withou | | | t | | | compli | | | cation | | | s | | | Bipola | | | r | | | disord | | | er, | | | unspec | | | ified | | | | | | Allerg | | | y | | | status | | | to | | | other | | | antibi | | | otic | | | agents | | | | | | status | | | | | | Person | | | al | | | histor | | | y of | | | nicoti | | | ne | | | depend | | | ence | | | | | | Allerg | | | y | | | status | | | to | | | penici | | | llin | | | | | | Allerg | | | y | | | status | | | to | | | narcot | | | ic | | | agent | | | status | | | | | | Other | | | long | | | term | | | (curre | | | nt) | | | drug | | | therap | | | y May | | | 17, | | | 2018 | | | [facility] | | | [facility] | | | rd | | | [facility] | | | Care | | | System | | | | | [facility] [place] | | | Emerge | | | ncy | | | Emerge | | | ncy | | | Chief | | | Compla | | | int: | | | KIDNEY | | | PAIN | | | E.D. | | | Visit | | | Count | | | (12 | | | mo.)Fa | | | cility | | | | | | Visits | | | Low | | | Acuity | | | Good | | | [facility] | | | rd | | | Health | | | Care | | | System | | | 3 0 | | | Provid | | | ence | | | St. | | | [facility] | | | Medica | | | l | | | Center | | | 10 0 | | | [facility] [place] [facility] | | y | | | Hospit | | | al 7 0 | | | Total | | | 20 0 | | | Note: | | | Visits | | | | | | indica | | | te | | | total | | | known | | | visits | | | . | | | Medica | | | id Low | | | | | | Acuity | | | Dx | | | are | | | the | | | number | | | of | | | primar | | | y | | | diagno | | | ses on | | | the | | | Medica | | | id's | | | Low | | | Acuity | | | dx | | | list. | | | | | | Recent | | | | | | Inpati | | | ent | | | Visit | | | [facility] | | | yNo | | | record | | | ed | | | inpati | | | ent | | | visits | | | . PDMP | | | | | | Report | | | PDMP | | | query | | | found | | | no | | | report | | | .Care | | | Provid | | | ersPro | | | vider | | | PRC | | | Type | | | Phone | | | Fax | | | Servic | | | e | | | Dates | | | TACHEN | | | Y, | | | HEATHE | | | R, MD | | | Family | | | | | | Medici | | | ne | | | (509) | | | [phone] | | | 50 | | | (509) | | | [phone] | | | 47 Nate | | | 26, | | | 2018 - | | | | | | Curren | | | t | | | Alfredo | | | o | | | [place] | | | - | | | [facility] | | | ions, | | | [facility] | | | Case | | | or | | | Care | | | Manage | | | r | | | (541) | | | [phone] | | | 04 | | | (541) | | | [phone] | | | 10 | | | Curren | | | t | | | TACHEN | | | Y, | | | HEATHE | | | R | | | Primar | | | y Care | | | (509) | | | | | | [phone] | | | 50 | | | (509) | | | 524-53 | | | 61 | | | Curren | | | t | | | Care | | | Histor | | | yBehav | | | ioral2 | | | /26/18 | | | 12:00 | | | AM | | | [facility] [place] [facility] | | [facility] | | | alCare | | | | | | Recomm | | | endati | | | on:Thi | | | s | | | patien | | | t has | | | had 5 | | | or | | | more | | | Emerge | | | ncy | | | Depart | | | ment | | | visits | | | in | | | the | | | last | | | 12 | | | months | | | .Patie | | | nt | | | requir | | | es | | | educat | | | ion on | | | the | | | scope | | | and | | | purpos | | | e of | | | the ED | | | as an | | | acute | | | care | | | provid | | | er not | | | a | | | Primar | | | y Care | | | | | | Provid | | | er and | | | | | | should | | | not | | | be | | | utiliz | | | ed for | | | | | | chroni | | | c | | | condit | | | ions.I | | | f | | | patien | | | t | | | return | | | s to | | | ED | | | please | | | | | | contac | | | t | | | Commun | | | ity | | | Health | | | | | | Worker | | | , | | | Fela | | | at | | | [phone] | | | [phone] | | | .These | | | are | | | guidel | | | taj | | | and | | | the | | | provid | | | er | | | should | | | | | | exerci | | | se | | | clinic | | | al | | | judgme | | | nt | | | when | | | provid | | | ing | | | care.M | | | edical | | | /Surgi | | | cal5/3 | | | 1/18 | | | 12:00 | | | AM | | | [facility] [place] | | [facility] | | | alCare | | | | | | Recomm | | | endati | | | on: | | | [facility] | | | spoke | | | to Dr | | | Brunsm | | | an | | | office | | | . | | | Patien | | | t has | | | cancel | | | led | | | multip | | | le | | | appoin | | | tments | | | with | | | OBGYN | | | office | | | , | | | theref | | | ore | | | has | | | not | | | receiv | | | ed | | | inject | | | ions | | | for | | | pain | | | manage | | | ment. | | | | | | Patien | | | t has | | | not | | | seen | | | PCP | | | office | | | and | | | needs | | | to see | | | PCP | | | for | | | pain | | | manage | | | ment. | | | USE | | | EXTREM | | | E | | | CAUTIO | | | N IN | | | GIVING | | | | | | NARCOT | | | ICS TO | | | THIS | | | PATIEN | | | T. | | | Avoid | | | Discha | | | rge | | | Narcot | | | ic | | | prescr | | | iption | | | s if | | | at all | | | | | | possib | | | le. | | | Please | | | use | | | clinic | | | al | | | judgem | | | ent.Th | | | is | | | patien | | | t has | | | had 5 | | | or | | | more | | | Emerge | | | ncy | | | Depart | | | ment | | | visits | | | in | | | the | | | last | | | 12 | | | months | | | .Patie | | | nt | | | requir | | | es | | | educat | | | ion on | | | the | | | scope | | | and | | | purpos | | | e of | | | the ED | | | as an | | | acute | | | care | | | provid | | | er not | | | a | | | Primar | | | y Care | | | | | | Provid | | | er and | | | | | | should | | | not | | | be | | | utiliz | | | ed for | | | | | | chroni | | | c | | | condit | | | ions.I | | | f | | | patien | | | t | | | return | | | s to | | | ED | | | please | | | | | | contac | | | t | | | Commun | | | ity | | | Health | | | | | | Worker | | | , | | | Fela | | | at | | | [phone] | | | [phone] | | | .These | | | are | | | guidel | | | taj | | | and | | | the | | | provid | | | er | | | should | | | | | | exerci | | | se | | | clinic | | | al | | | judgme | | | nt | | | when | | | provid | | | ing | | | care.C | | | riteri | | | a met | | | 4 | | | visits | | | in | | | 60Know | | | n | | | Aliase | | | sNo | | | known | | | aliase | | | s. The | | | above | | | | | | inform | | | ation | | | is | | | provid | | | ed for | | | the | | | sole | | | purpos | | | e of | | | patien | | | t | | | treatm | | | ent. | | | Use of | | | this | | | inform | | | ation | | | beyond | | | the | | | terms | | | of | | | Data | | | Sharin | | | g | | | Memora | | | ndum | | | of | | | Unders | | | tandin | | | g and | | | Licens | | | e | | | Agreem | | | ent is | | | | | | prohib | | | ited. | | | In | | | certai | | | n | | | cases | | | not | | | all | | | visits | | | may | | | be | | | repres | | | ented. | | | | | | Consul | | | t the | | | aforem | | | ention | | | ed | | | facili | | | ties | | | for | | | additi | | | onal | | | inform | | | ation. | | | 2018 | | | [facility] | | | tive | | | Medica | | | l | | | Techn[employer] | | | logies | | | , [employer] | | | - | | | Salt | | | Rosario | | | [facility], | | | ID - | | | [email or web address] | | | ollect | | | ivemed | | | icalte | | | [email or web address] | | | | +---+--------+ + +---+ +---+ + | IMAGING REPORT - | | 06/22/2018 | | Results for this | | EXTERNAL SCAN | | 0000 PDT | | procedure are in the | | | | | | results section. | + +---+ +---+ + from Last 3 Months Results Urinalysis with Microscopic with Culture if Indicated (06/23/2018 2217) + + + + + | Component | Value | Ref Range | Performed At | + + + + + | COLOR | Yellow | Light Yellow, | [facility] | | | | Yellow, Straw | [facility] | | | [facility] | | | | | [facility] | + + + + + | CLARITY | Hazy (A) | Clear | [facility] | | | | | [facility] | + + + + + | PH UA | 6.0 | 5.0 - 8.0 | [facility] | | | | | [facility] | [facility] | + + + + + | Specific [place] | 1.027 | 1.001 - 1.030 | [facility] | | | | | [facility] | | | | | [facility] | + + + + + | PROTEIN UA | Negative | Negative | [facility] | | | | [facility] | | | [facility] | + + + + + | BLOOD UA | Small (A) | Negative | [facility] | | | | [facility] | | | | | [facility] | + + + + + | GLUCOSE UA | Negative | Negative | [facility] | | | | [facility] | | | | | [facility] | + + + + + | KETONES UA | Negative | Negative | [facility] | | | | | [facility] | + + + + + | BILIRUBIN UA | Negative | Negative | [facility] | | | | [facility] | | | | | [facility] | + + + + + | NITRITE UA | Negative | Negative | [facility] | | | | [facility] | | | | | [facility] | + + + + + | LEUKOCYTES ESTERASE | Negative | Negative | [facility] | | UA | | | [facility] | | | [facility] - | | | | | [facility] | + + + + + | UROBILINOGEN UA | Negative | 0.2 mg/dL, 1.0 | [facility] | | | | mg/dL, Negative | [facility] | | | [facility] | | | | | [facility] | + + + + + | WBC UA | 0-2 | 0 - 2 /HPF | [facility] | | | | | [facility] | | | | | [facility] | + + + + + | RBC UA | 0-2 | 0 - 2 /HPF | [facility] | | | | [facility] - | | | | | [facility] | + + + + + | SQUAMOUS EPITHELIAL | >100 (A) | 0 - 2 /LPF | [facility] | | [facility] | [facility] - | | | | | [facility] | + + + + + | BACTERIA UA | 1+ (A) | Negative /HPF | [facility] | | | | | [facility] | [facility] | [facility] - | | | | | [facility] | + + + + + | MUCUS UA | Present (A) | Negative /LPF | [facility] | | | | | [facility] - | | | | | [facility] | + + + + + | URINE COMMENT | Urine Culture Not | | [facility] | | | Indicated | | [facility] | | | [facility] - | | | | | [facility] | + + + + + + + | Specimen | + + | Urine - Urine, Clean | | Catch | + + + + + + + | Performing | Address | City/State/Zipcode | Phone Number | | Organization | | | | + + + + + | [facility] | [address] | [place] | [phone] | | [facility] | | [address] | | | - LABORATORY | | | | + + + + + | [facility] | [address] | [place] | | | [facility] | | [address] | | | - LABORATORY | | | | + + + + + CBC w/ Auto Differential (06/23/20182057) + + + + + | Component | Value | Ref Range | Performed At | + + + + + | WBC | 11.5 (H) | 4.0 - 11.0 K/uL | [facility] | | | | | [facility] | | | | | [facility] - | | | | | LABORATORY | + + + + + | RBC | 4.68 | 3.70 - 5.20 M/uL | [facility] | [facility] | | | | | [facility] - | | | | | LABORATORY | + + + + + | Hgb | 13.0 | 11.5 - 16.0 g/dL | [facility] | | | | | [facility] | [facility] - | | | | | [facility] | + + + + + | Hct | 39.2 | 34.0 - 47.0 % | [facility] | | | | | [facility] | | | [facility] - | | | | | [facility] | + + + + + | MCV | 83.9 | 83.0 - 101.0 fL | [facility] | | | | | [facility] | | | | [facility] - | | | | | [facility] | + + + + + | MCH | 27.9 (L) | 28.0 - 35.0 pg | [facility] | | | | | [facility] | | | | [facility] - | | | | | [facility] | + + + + + | MCHC | 33.2 | 32.0 - 36.0 g/dL | [facility] | | | | | [facility] | | | | [facility] - | | | | | [facility] | + + + + + | RDW-CV | 15.0 (H) | <15.0 % | [facility] | | | | | [facility] | | | | | [facility] - | | | | | [facility] | + + + + + | Platelet Count | 258 | 140 - 440 K/uL | [facility] | | | | | [facility] | | | [facility] - | | | | | [facility] | + + + + + | MPV | 8.0 | fL | [facility] - | | | | | LABORATORY | + + + + + | % Neutrophils | 72.4 | 45.0 - 82.0 % | [facility] - | | | | | LABORATORY | + + + + + | % Lymphocytes | 21.0 | 20.0 - 45.0 % | [facility] | | [facility] - | | | | | LABORATORY | + + + + + | % Monocytes | 4.8 | 4.0 - 12.0 % | [facility] | | [facility] - | | | | | LABORATORY | + + + + + | % Eosinophils | 1.2 | 0.0 - 5.0 % | [facility] - | | | | | LABORATORY | + + + + + | % Basophils | 0.6 | 0.0 - 1.0 % | [facility] - | | | | | LABORATORY | + + + + + | Absolute Neutrophils | 8.40 | 1.80 - 8.50 K/uL | [facility] - | | | | | LABORATORY | + + + + + | Absolute Lymphocytes | 2.40 | 0.60 - 3.20 K/uL | [facility] | [facility] - | | | | | LABORATORY | + + + + + | Absolute Monocytes | 0.60 | 0.00 - 1.00 K/uL | [facility] | | | [facility] - | | | | | LABORATORY | + + + + + | Absolute Eosinophils | 0.10 | 0.00 - 0.40 K/uL | [facility] | [facility] | | | | [facility] - | | | | | LABORATORY | + + + + + | Absolute Basophils | 0.10 | 0.00 - 0.10 K/uL | [facility] | | | | | [facility] - | | | | | LABORATORY | + + + + + + + | Specimen | + + | Blood | + + + + + + + | Performing | Address | City/State/Zipcode | Phone Number | | Organization | | | | + + + + + | [facility] | [address] | [place] | [phone] | | [facility] | | [address] | | | - LABORATORY | | | | + + + + + | [facility] | [address] | [place] | | | [facility] | | [address] | | | - LABORATORY | | | | + + + + + HCG, Serum, Quant (06/23/20182057) + + + + + | Component | Value | Ref Range | Performed At | + + + + + | hCG Quant, Serum | 0Comment: RE[facility]ENCE | 0 - 1 mIU/mL | [facility] | | RANGE: | | [facility] | | | | | [facility] - | | | B-hCG | | LABORATORY | | | LEVELGestational | | | | | Age Expected | | | | | hCG | | | | | Values | | | | | | | | | | -----0.2-1 | | | | | week | | | | | 5-50 | | | | | mIU/mL1-2 | | | | | weeks | | | | | 50-500 | | | | | mIU/mL2-3 | | | | | weeks | | | | | 100-5,000 | | | | | mIU/mL3-4 | | | | | weeks | | | | | 500-10,000 | | | | | mIU/mL4-5 | | | | | weeks | | | | | 1,000-50,000 mIU/mL5-6 | | | | | weeks | | | | | 10,000-100,000 mIU/mL6-8 | | | | | weeks | | | | | 15,000-200,000 mIU/mL2-3 | | | | | | | | | | months 10 | | | | | ,000-100,000 mIU/mL | | | + + + + + + + | Specimen | + + | Blood | + + + + + + + | Performing | Address | City/State/Zipcode | Phone Number | | Organization | | | | + + + + + | [facility] | [address] | [place] | [phone] | | [facility] | | [address] | | | - LABORATORY | | | | + + + + + | [facility] | [address] | [place] | | | [facility] | | [address] | | | - LABORATORY | | | | + + + + + Comprehensive Metabolic Panel (06/23/20182057) + + + + + | Component | Value | Ref Range | Performed At | + + + + + | NA | 143 | 136 - 149 mmol/L | [facility] | | | | | CENTER - | | | | | LABORATORY | + + + + + | K | 3.4 (L) | 3.5 - 5.1 mmol/L | [facility] | | | | | C[facility] - | | | | | LABORATORY | + + + + + | CL | 109 | 98 - 109 mmol/L | [facility] | | | | | C[facility] - | | | | | LABORATORY | + + + + + | CO2 | 27 | 24 - 31 mmol/L | [facility] | | [facility] | | | | | C[facility] - | | | | | LABORATORY | + + + + + | ANION GAP | 7 | 3 - 16 mmol/L | [facility] | | [facility] | | | | | [facility] - | | | | | LABORATORY | + + + + + | GLUCOSE | 98 | 70 - 109 mg/dL | [facility] - | | | | | LABORATORY | + + + + + | BUN | 10 | 7 - 18 mg/dL | [facility] | | | | | CENTER - | | | | | LABORATORY | + + + + + | Creatinine, | 0.91 | 0.60 - 1.30 mg/dL | [facility] | | Serum/Plasma | | | [facility] | | | | | CENTER - | | | | | LABORATORY | + + + + + | eGFR if not | >60Comment: GLOMERULAR | >=60 mL/min/1.73m2 | [facility] | | [place] | FILTRATION | | [facility] | | | RATE,ESTIMATED mL/min | | CENTER - | | | /1.70b3Prjw than 60 | | LABORATORY | | | Chronic kidney | | | | | disease,if found over a | | | | | 3-month period.Less than | | | | | 15 Kidney | | | | | failureFor | | | | | Americans,multiply the | | | | | calculated GFR by 1.21. | | | | | | | | + + + + + | CALCIUM | 8.4 | 8.3 - 10.5 mg/dL | [facility] - | | | | | LABORATORY | + + + +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
--- OUTSIDE RECORDS SUMMARY | ~2018-08-11 | XMS | Encounter Summary ---
Demographics + + + | Address | [address] | | | [place] [address] | + + + | Home Phone | | + + + | Preferred Language | Unknown | + + + | Marital Status | Single | + + + | Anabaptism Affiliation | Unknown | + + + | Race | Unknown | + + + | Ethnic Group | Unknown | + + + Author + + + | Author | [facility] | | | and [place] | + + + | Organization | [facility] | | | and [...] Team Providers + +------+ + | Care Logistics Specialist Name | Role | Phone | + +------+ + | Liliana Ibrahim MD | PCP | | + +------+ + Reason for Visit + + + | Reason | Comments | + + + | Vaginal Bleeding | | + + + Encounter Details +--------+ + + + + | Date | Type | Department | Care Team | Description | +--------+ + + + + | 06/23/ | Emergency | [facility] | Lanre Aquinon S, | Abnormal vaginal | | 2018 | | [facility] | [address] | bleeding (Primary | | | | CENTER [address] | [place], [place] | Dx); Pelvic cramping | | | | [place], [place] | [address] [address] | | | | | [address] | LMD [address] | | | | | [phone] | ST [place], [place] | | | | | | [address] | | | | | | | | +--------+ + + + + Social History + +-------+ +--------+------+ | Tobacco [...] on file | | + + + as of this encounter Last Filed Vital Signs + + + + | Vital Sign | Reading | Time Taken | + + + + | Blood Pressure | 108/85 | 06/23/20180 PDT | + + + + | [...] 06/23/20182004 PDT | + + + + in this encounter Discharge Instructions The following attachments cannot be sent through Care Everywhere.Uterine Bleeding, Understa nding ([place] Citizen)Pelvic Pain, Unknown Cause ([place] Citizen)in this encounter Medications at Time of Discharge + + +---------+---------+ + + | Medication | Sig. | Disp. | Refills | Start | End Date | | | | | | Date | | + + +---------+---------+ + + | albuterol 90 | Inhale 2 puffs into | 1 | 0 | 09/25/20 | | | mcg/puff inhaler | the lungs every 4 | Inhaler | | 17 | | | | hours as needed for | | | | | | | Wheezing or | | | | | | | Shortness of Breath. | | | | | | | Use with spacer | | | | | | | device. | | | | | + + +---------+---------+ + + | beclomethasone | Inhale 2 puffs into | | | 11/15/20 | | | (QVAR) 40 mcg/puff | the lungs. | | | 17 | 8 | | inhaler | | | | | | + + +---------+---------+ + + | estradiol | Take 2 mg by mouth | | | | | | (ESTRACE) 2 MG | Daily. | | | | | | tablet | | | | | | + + +---------+---------+ + + | lamoTRIgine | take 1 tablet by | | 0 | 11/19/20 | | | (LAMICTAL) 25 mg | mouth once daily AT | | | 17 | | | tablet | 2ND WEEK AND | | | | | | | AFTERWARDS TAKE 2 | | | | | | | tablets EACH DAY | | | | | + + +---------+---------+ + + | omeprazole | take 1 capsule by | | 0 | 12/23/19 | | | (PRILOSEC) 20 mg | mouth once daily | | | 18 | | | capsule | | | | | | + + +---------+---------+ + + | | take 1 to 2 tablets | | 0 | 01/15/20 | | | oxyCODONE-acetaminop | by mouth every 6 | | | 18 | | | hen (PERCOCET) 5-325 | hours if needed for | | | | | | mg per tablet | pain | | | | | + + +---------+---------+ + + | QUEtiapine | Take 50 mg by mouth | | | | | | (SEROQUEL) 50 MG | 2 times daily. | | | | | | tablet | | | | | | + + +---------+---------+ + + | sertraline | Take 25 mg by mouth | | | | | | (ZOLOFT) 25 mg | Daily. | | | | | | tablet | | | | | | + + +---------+---------+ + + | sertraline | take 1 tablet by | | 0 | 12/28/19 | | | (ZOLOFT) 50 mg | mouth once daily | | | 18 | | | tablet | | | | | | + + +---------+---------+ + + | traMADol (ULTRAM) | Take 50 mg by mouth | | | | | | 50 mg tablet | every 6 hours as | | | | | | | needed. | | | | | + + +---------+---------+ + + | traZODone | Take 50 mg by mouth. | | | 11/24/20 | | | (DESYREL) 50 mg | | | | 17 | | | tablet | | | | | | + + +---------+---------+ + + as of this encounter Plan of Treatment + +--------+ + + | Name | Priori | Associated Diagnoses | Date/Time | | | ty | | | + +--------+ + + | ED INFORMATION EXCHANGE | Routin | | 06/23/2018 1950 PDT | | | e | | | + +--------+ + + as of this encounter Procedures + +--------+ + + + | Procedure Name | Priori | Date/Time | Associated Diagnosis | Comments | | | ty | | | | + +--------+ + + + | URINALYSIS WITH | STAT | 06/23/2018 | | Results for this | | MICROSCOPIC WITH | | 2216 PDT | | procedure are in the [...] | | | 2017 | | | 195 | | | PDT | | | [...] ANAY | | | | | | [id number] | | | [id number] | | | This | | | [...] | | | ent/89 | | | [id number] | | | -54d4- | | | 45e7-9 | | | ddb-66 | | | [id number] | | | d6a7 | | | [...] | | | St. | | | [facility] | | | y H. | | [...] | | | St. | | | [facility] | | | y H. | | [...] | | | St. | | | [facility] | | | y | | | [...] | | | St. | | | [facility] | | | y | | | [...] | | | St. | | | [facility] | | | y | | | [...] | | | ation. | | | 2017 | | | [employer] | | | tive | | | Med[employer] | | | l | | | [employer] | | | logies | | | , [employer] | | | - | | | [place] | | | [place] | | | [place], | | | [place] - | | | info@c | | [...] results section. | + +---+ +---+ + in this encounter Results Urinalysis with Microscopic with Culture if [...] + + + + + | Specific [place] | 1.027 | 1.001 - 1.030 | [...] COMMENT | Urine Culture Not | | [facility] | | | Indicated | | [facility] | | | | | CENTER - [...] + | [facility] | [address] | [place] | [phone] | | [facility] | | [address] | | | - LABORATORY | | | | + + + + + | [facility] | [address] | [place] | | | [facility] | | [address] | | | - LABORATORY | | | | + + + + + HCG, Serum, Quant (06/23/20182057) + + + + + | Component | Value | Ref Range | Performed At | + + + + + | hCG Quant, Serum | 0Comment: REFERENCE | 0 - 1 mIU/mL | [facility] | | | RANGE: | | [facility] | | | | | CENTER - [...] + | [facility] | [address] | [place] | [phone] | | [facility] | | [address] | | | - LABORATORY | | | | + + + + + | [facility] | [address] | [place] | | | [facility] | | [address] | | | - LABORATORY | | | | + + + + + Comprehensive Metabolic Panel (06/23/20182057) + + + + + | Component | Value | Ref Range | Performed At | + + + + + | NA | 143 | 136 - 149 mmol/L | [facility] | | | | | [facility] | | | | | CENTER - [...] 98 | 70 - 109 mg/dL | [facility] | | | | | [facility] | | | | | CENTER - | | | | | LABORATORY | + + + + + | BUN | 10 | 7 - 18 mg/dL | [facility] | | | | | [facility] | | | | | CENTER - | | | | | LABORATORY | + + + + + | Creatinine, | 0.91 | 0.60 - 1.30 mg/dL | [facility] | | Serum/Plasma | | | [facility] | | | | | CENTER - | | | | | LABORATORY | + + + + + | eGFR if not | >60Comment: GLOMERULAR | >=60 mL/min/1.73m2 | [facility] | | [place] | FILTRATION | | [facility] | | | RATE,ESTIMATED mL/min | | CENTER - | | | /1.92f3Odiz than 60 | | LABORATORY | | [...] 8.4 | 8.3 - 10.5 mg/dL | [facility] | | | | | [facility] | | | | | CENTER - | | | | | LABORATORY | + + + + + | ALBUMIN | 3.2 | 3.2 - 5.0 g/dL | [facility] | | | | | [facility] | | | | | CENTER - [...] | | appended report. These | | [facility] | | | results have been [...] | | appended report. These | | [facility] | | | results have been | | CENTER - | | | appended to a previously | | LABORATORY | | | preliminary verified | | | | | report. | | | + + + + + | GLOBULIN | 3.2 | 2.1 - 3.8 g/dL | [facility] | | | | | [facility] | | | | | CENTER - | | | | | LABORATORY | + + + + + | Albumin/Globulin | 1.0 | 0.8 - 2.0 | [facility] | | ratio | | | [facility] | | | | | CENTER - | | | | | LABORATORY | + + + + + | BUN/CREA | 11.0 | | [facility] | | | | | [facility] | | | | | CENTER - | | | | | LABORATORY | + + + + + + + | Specimen | + + | Blood | + + + + + + + | Performing | Address | City/State/Zipcode | Phone Number | | Organization | | | | + + + + + | [facility] | [address] | [place] | [phone] | | [facility] | | [address] | | | - LABORATORY | | | | + + + + + | [facility] | [address] | [place] | | | [facility] | | [address] | | | - LABORATORY | | | | + + + + + CBC w/ Auto Differential (06/23/20182057) + + + + + | Component | Value | Ref Range | Performed At | + + + + + | WBC | 11.5 (H) | 4.0 - 11.0 K/uL | [facility] | | | | | [facility] | | | | | CENTER - | | | | | LABORATORY | + + + + + | RBC | 4.68 | 3.70 - 5.20 M/uL | [facility] | | | | | [facility] | | | | | CENTER - [...] [facility] | | | | | [facility] | | | | | CENTER - | | | | | LABORATORY | + + + + + + + | Specimen | + + | Blood | + + + + + + + | Performing | Address | City/State/Zipcode | Phone Number | | Organization | | | | + + + + + | [facility] | [address] | [place] | [phone] | | [facility] | | [address] | | | - LABORATORY | | | | + + + + + | [facility] | [address] | [place], [place] | | | [facility] | | [address] | | | - LABORATORY | | | | + + + + + IMAGING REPORT - EXTERNAL SCAN (06/22/2018) + + + | Narrative | Performed At | + + + | Ordered by an | | | unspecified provider. | | + + + in this encounter Visit Diagnoses + + | Diagnosis | + + | Abnormal vaginal bleeding - Primary | + + | Other specified noninflammatory disorder of vagina | + + | Pelvic cramping | + + | Unspecified symptom associated with female genital organs | + + Administered Medications + +--------+ +-------+------+------+ | Medication Order | MAR | Action | Dose | Rate | Site | | | Action | Date | | | | + +--------+ +-------+------+------+ | diphenhydrAMINE (BENADRYL) | Given | | 25 mg | | | | injection 25 mg 25 mg, | | 8 21:35 | | | | | Intravenous, ONCE, [facility] 06/23/18 at | | PDT | | | | | 2130, For 1 dose | | | | | | + +--------+ +-------+------+------+ +---+---+ | | | +---+---+ + +-------+ +--------+---+ + | methylergonovine (METHERGINE) | Given | | 0.2 mg | | Deltoid- | | injection 0.2 mg 0.2 mg, | | 8 22:21 | | | Left | | Intramuscular, ONCE, [facility] 06/23/18 | | PDT | | | | | at 2210, For 1 dose, Reproductive | | | | | | | Risk: Use appropriate handling | | | | | | | precautions. Keep in | | | | | | | refrigerator. | | | | | | + +-------+ +--------+---+ + +---+---+ | | | +---+---+ + +---------+ +---------+-------+---+ | promethazine (PHENERGAN) 12.5 | New Bag | | 12.5 mg | 202 | | | mg in sodium chloride 0.9% 50 mL | | 8 22:20 | | mL/hr | | | IVPB 12.5 mg, Intravenous, | | PDT | | | | | Administer over 15 Minutes, ONCE, | | | | | | | [facility] 06/23/18 at 2200, For 1 dose | | | | | | + +---------+ +---------+-------+---+ +---+---+ | | | +---+---+ in this encounter
--- OUTSIDE RECORDS SUMMARY | ~2018-08-11 | XMS | Encounter Summary ---
Demographics + + + | Address | [address] | | | [place] [address] | + + + | Home Phone | | + + + | Preferred Language | Unknown | + + + | Marital Status | Single | + + + | Congregational Affiliation | Unknown | + + + | Race | Unknown | + + + | Ethnic Group | Unknown | + + + Author + + + | Author | [facility] | | | and a[facility] | + + + | Organization | [facility] | | | [...] Team Providers + +------+ + | Care Press Shop Supervisor Name | Role | Phone | + [...] + + | 06/23/ | Emergency | [facility] | Lanre Aquinon S, | Abnormal vaginal | | 2018 | | [facility] | [address] | bleeding (Primary | | | | CENTER [address] | [place], [place] | Dx); Pelvic cramping | | | | [place], [place] | [address] [address] | | | | | [address] | LMD [address] | | | | | [phone] | ST [place], [place] | | | | | | [address] | | | | | | | [...] sent through Care Everywhere.Uterine Bleeding, Understa nding (Citizen Of [place])Pelvic Pain, Unknown Cause (Citizen Of [place])in this encounter Medications at Time of Discharge [...] ANAY | | | | | | [id number] | | | [id number] | | | This | | | [...] | | | ent/89 | | | [id number] | | | -54d4- | | | 45e7-9 | | | ddb-66 | | | [id number] | | | d6a7 | | | [...] | | | St. | | | [place] | | | y H. | | [...] | | | St. | | | [place] | | | y H. | | [...] | | | St. | | | [place] | | | y | | | [...] | | | St. | | | [place] | | | y | | | [...] | | | St. | | | [place] | | | y | | | [...] + + + + + | Specific [place] | 1.027 | 1.001 - 1.030 | [...] ST. | | | Indicated | | [facility] | | | | | CENTER [...] [address] | [place] | [phone] | | [facility] | | [address] | | | - LABORATORY | | | | + + + + + | [facility] | [address] | [place] | | | [facility] | | [address] | | | - LABORATORY | | | | + + + + + HCG, Serum, Quant (06/23/20182057) + + + + + | Component | Value | Ref Range | Performed At | + + + + + | hCG Quant, Serum | 0Comment: REFERENCE | 0 - 1 mIU/mL | [facility] | | | RANGE: | | [facility] | | | | | CENTER [...] + | [facility] | [address] | [place] | [phone] | | [facility] | | [address] | | | - LABORATORY | | | | + + + + + | [facility] | [address] | [place] | | | [facility] | | [address] | | | - LABORATORY | | | | + + + + + Comprehensive Metabolic Panel (06/23/20182057) + + + + + | Component | Value | Ref Range | Performed At | + + + + + | NA | 143 | 136 - 149 mmol/L | [facility] | | | | | [facility] | | | | | CENTER [...] [facility] | | | | | [facility] | | | | | CENTER - | | | | | LABORATORY | + + + + + | BUN | 10 | 7 - 18 mg/dL | [facility] | | | | | [facility] | | | | | CENTER - | | | | | LABORATORY | + + + + + | Creatinine, | 0.91 | 0.60 - 1.30 mg/dL | [facility] | | Serum/Plasma | | | [facility] | | | | | CENTER - | | | | | LABORATORY | + + + + + | eGFR if not | >60Comment: GLOMERULAR | >=60 mL/min/1.73m2 | [facility] | | [place] | FILTRATION | | [facility] | | | RATE,ESTIMATED mL/min | | CENTER - | | | /1.77l5Kofw than 60 | | LABORATORY | | [...] 8.4 | 8.3 - 10.5 mg/dL | [facility] | | | | | [facility] | | | | | CENTER - | | | | | LABORATORY | + + + + + | ALBUMIN | 3.2 | 3.2 - 5.0 g/dL | [facility] | | | | | [facility] | | | | | CENTER [...] | | appended report. These | | [facility] | | | results have [...] | | appended report. These | | [facility] | | | results have been | | CENTER - | | | appended to a previously | | LABORATORY | | | preliminary verified | | | | | report. | | | + + + + + | GLOBULIN | 3.2 | 2.1 - 3.8 g/dL | [facility] | | | | | [facility] | | | | | CENTER - | | | | | LABORATORY | + + + + + | Albumin/Globulin | 1.0 | 0.8 - 2.0 | [facility] | | ratio | | | [facility] | | | | | CENTER - | | | | | LABORATORY | + + + + + | BUN/CREA | 11.0 | | [facility] | | | | | [facility] | | | | | CENTER [...] [address] | [place] | [phone] | | [facility] | | [address] | | | - LABORATORY | | | | + + + + + | [facility] | [address] | [place] | | | [facility] | | [address] | | | - LABORATORY | | | | + + + + + CBC w/ Auto Differential (06/23/20182057) + + + + + | Component | Value | Ref Range | Performed At | + + + + + | WBC | 11.5 (H) | 4.0 - 11.0 K/uL | [facility] | | | | | [facility] | | | | | CENTER - | | | | | LABORATORY | + + + + + | RBC | 4.68 | 3.70 - 5.20 M/uL | [facility] | | | | | [facility] | | | | | CENTER [...] [facility] | | | | | [facility] | | | | | CENTER [...] + | [facility] | [address] | [place] | [phone] | | [facility] | | [address] | | | - LABORATORY | | | | + + + + + | [facility] | [address] | [place], [place] | | | [facility] | | [address] | | | - LABORATORY | | [...] | | | | | Intravenous, ONCE, [facility] 06/23/18 at | | PDT | [...] | | Left | | Intramuscular, ONCE, [facility] 06/23/18 | | PDT | | [...]
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
[~2018-08-11 21:44] MED LIST changes: +OXCARBAZEPINE150 MG PO
--- OUTSIDE RECORDS SUMMARY | 2018-08-11 21:50 | XMS ---
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 No recent Security Events currently on file CRITERIA MET - Group Notification - 6 ED Visits in 6 Months - [facility] [place] C[facility] PROVIDERS ROSALBA SNOW [facility] Current PHONE: [phone] [facility] Current PHONE: [phone] ROSALBA SNOW [facility] Current PHONE: [phone] Ramsey Corcoran - Case or Studio Technician [facility] PHONE: [phone] ROSALBA SNOW [facility] Current PHONE: [phone] Guidelines Source: [facility] - [place] Guidelines Date: 08/10/2018 Other Information: Currently enrolled in mental health services with [facility] in [place].\T\nbsp; She has missed the last 5 scheduled appointments.\T\nbsp; Please encourage her to contact [facility] for her mental health concerns.\T\nbsp; [phone] Care History Medical/Surgical 04/28/2018 [facility] Care Recommendation: - CHW spoke to Dr Abarca office. Patient has cancelled multiple appointments with OBGYN office, therefore has not received injections for pain management. - Patient has not seen PCP office and needs to see PCP for pain management. - USE EXTREME CAUTION IN GIVING NARCOTICS TO THIS PATIENT. - Avoid Discharge Narcotic prescriptions if at all possible. Please use clinical judgement. This patient has had 5 or more Emergency Department visits in the last 12 months. Patient requires education on the scope and purpose of the ED as an acute care provider not a Primary Care Provider and should not be utilized for chronic conditions. If patient returns to ED please contact Fela Padilla at [phone]. These are guidelines and the provider should exercise clinical judgment when providing care. Behavioral 01/24/2018 [facility] Care Recommendation: This patient has had 5 or more Emergency Department visits in the last 12 months. Patient requires education on the scope and purpose of the ED as an acute care provider not a Primary Care Provider and should not be utilized for chronic conditions. If patient returns to ED please contact Fela Padilla at [phone]. These are guidelines and the provider should exercise clinical judgment when providing care. Rhonda VISIT COUNT (12 MO.) 3 [facility] [address] [facility] 8 [facility] TOTAL 20 NOTE: Visits indicate total known visits. 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 - Less than 8 weeks gestation of - Abnormal uterine and vaginal bleeding, unspecified - Allergy status to penicillin - Bipolar disorder, unspecified - Unspecified asthma, uncomplicated - Allergy status to other antibiotic agents status - Allergy status to narcotic agent status - Other mental disorders complicating , first trimester - Threatened - Smoking (tobacco) complicating , first trimester - Diseases of the respiratory system complicating , first trimester - Nicotine dependence, unspecified, uncomplicated 05/01/2018 19:52 [facility] DIAGNOSES: - rt side back pain - Abdominal Pain - Flank Pain - Unspecified abdominal pain 04/28/2018 17:01 [facility] Shannan HinsonBrittnee GONZALEZ TYPE: Emergency DIAGNOSES: - Abdominal Pain - Pelvic Pain - Pelvic and perineal pain 04/27/2018 17:36 [facility] [place] [facility] COMPLAINT: - ABD PAIN/BACK PAIN DIAGNOSES: - Allergy status to other antibiotic agents status - Personal history of nicotine dependence - Unspecified asthma, uncomplicated - Allergy status to penicillin - Allergy status to narcotic agent status - Type 2 diabetes mellitus without complications - Pelvic and perineal pain - Other long-term (current) drug therapy - Bipolar disorder, unspecified 04/14/2018 14:35 [facility] TYPE: Emergency COMPLAINT: - KIDNEY PAIN 02/28/2018 16:47 [facility] TYPE: Emergency COMPLAINT: - SHORTNESS OF BREATH DIAGNOSES: - Unspecified asthma with (acute) exacerbation - Cough - Gout, unspecified - Unspecified osteoarthritis, unspecified site - Acute upper respiratory infection, unspecified 02/13/2018 10:34 [facility] [place] [facility] TYPE: Emergency COMPLAINT: - CHEST PAIN SHORTNESS OF BREATH DIAGNOSES: - Acute upper respiratory infection, unspecified - Chronic obstructive pulmonary disease with (acute) exacerbation 01/23/2018 12:47 [facility] TYPE: Urgent Care DIAGNOSES: - Pharyngitis - Pain in throat 01/22/2018 17:06 [facility] TYPE: Emergency COMPLAINT: - POST OP ISSUES DIAGNOSES: - Left lower quadrant pain - Acquired absence of ovaries, unilateral - Other acute postprocedural pain - Type 2 diabetes mellitus without complications - Bipolar disorder, unspecified - Allergy status to penicillin - Personal history of nicotine dependence - Other watermaster (current) drug therapy - Allergy status to narcotic agent status - Allergy status to other antibiotic agents status - Unspecified asthma, uncomplicated 01/15/2018 12:55 [facility] TYPE: Emergency COMPLAINT: - ABDOMINAL PAIN DIAGNOSES: - Allergy status to penicillin - Type 2 diabetes mellitus without complications - Personal history of nicotine dependence - Allergy status to narcotic agent status - Acquired absence of other organs - Other long-term (current) drug therapy - Unspecified asthma, uncomplicated - Polycystic ovarian syndrome - Left lower quadrant pain - Bipolar disorder, unspecified - Acquired absence of other specified parts of digestive tract 01/14/2018 18:21 [facility]: [facility] DIAGNOSES: - Left Flank Pain - Abdominal Pain - Pelvic and perineal pain 12/22/2017 21:50 [facility] TYPE: Emergency COMPLAINT: - ABD PAIN,VOMITING DIAGNOSES: - Allergy status to penicillin - Personal history of nicotine dependence - Epigastric pain - Type 2 diabetes mellitus without complications - Functional dyspepsia - Allergy status to narcotic agent status 12/17/2017 21:33 [facility]: [facility] DIAGNOSES: - Nausea with vomiting, unspecified - Emesis - Flank Pain - Right upper quadrant pain - emesis, back \E\T\E\ abd pain 12/05/2017 18:51 [facility] Shannan SykesYakelin GONZALEZ TYPE: Emergency DIAGNOSES: - Pelvic and perineal pain - Abdominal Pain - pelvic pain 11/09/2017 18:08 [facility] TYPE: Emergency COMPLAINT: - COUGH DIAGNOSES: - Acquired absence of other specified parts of digestive tract - Allergy status to penicillin - Allergy status to narcotic agent status - Other watermaster (current) drug therapy - 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 - Bronchitis, not specified as acute or chronic - Cough 10/16/2017 11:04 [facility] TYPE: Emergency COMPLAINT: - PELVIC PAIN DIAGNOSES: - Other watermaster (current) drug therapy - Allergy status to narcotic agent status - Pelvic and perineal pain - Endometriosis, unspecified - Allergy status to penicillin - OTHER SPECIFIED POSTPROCEDURAL STATES - Acquired absence of other specified parts of digestive tract 10/10/2017 14:54 [facility]ONZALE[facility] TYPE: Emergency DIAGNOSES: - abd pain - Abdominal Pain - Pelvic and perineal pain 09/25/2017 15[facility] DIAGNOSES: - sore throat - Cough - Cough - Acute upper respiratory infection, unspecified - Bronchitis, not specified as acute or chronic Plus 1 More Visit INPATIENT VISIT TRACKING (12 MO.) No inpatient visits to display in this time frame [email or web address]
[2018-08-12] MEDS ORDERED: DOXYCYCLINE HY100 MG PO (00:05)
== END 2018-08-12 00:22 | disposition home or self-care (01) ==
LOC: ED 21:44
DX: J01.90 Acute sinusitis, unspecified (principal); J98.8 Other specified respiratory disorders; B97.89 Other viral agents as the cause of diseases classified elsewhere; H66.92 Otitis media, unspecified, left ear; E11.9 Type 2 diabetes mellitus without complications; Z88.0 Allergy status to penicillin; Z88.5 Allergy status to narcotic agent; Z88.1 Allergy status to other antibiotic agents; Z79.899 Other long term (current) drug therapy
CPT/HCPCS: 71045; 80053; 81001; 84703; 85025; 96360; 99283; J7040

== ENCOUNTER 2018-08-15 15:05 | Emergency (ER) | payer OTHER ==
[~2018-08-15] VITALS: Ht 165.1 cm; Wt 113.8 kg
[~2018-08-15 15:05] MED LIST changes: +DOXYCYCLINE HY100 MG PO
--- OUTSIDE RECORDS SUMMARY | 2018-08-15 15:12 | XMS ---
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 TABOR Security Cap Sewer Events No recent Security Events currently on file CRITERIA MET - Group Notification - 6 ED Visits in 6 Months - [facility] - Has Care Guidelines - [facility] - 2 Visits in 30 Days CARE PROVIDERS ROSALBA SNOW [facility] Current PHONE: [phone] [facility] Provider Current PHONE: [phone] ROSALBA SNOW Primary [facility] Current PHONE: [phone] Ramsey Corcoran - Case or Wire Stitcher Current [facility] PHONE: [phone] ROSALBA SNOW Primary [facility] Current PHONE: [phone] Guidelines [facility] Date: 08/10/2018 Other Information: Currently enrolled in mental health services with [facility] in [place].\T\nbsp; She has missed the last 5 scheduled appointments.\T\nbsp; Please encourage her to contact [facility] for her mental health concerns.\T\nbsp; [phone] Care History Medical/Surgical 04/28/2018 [facility] Care Recommendation: - CHW spoke [...] to ED please contact Fela Padilla at [phone]. These are guidelines and the provider should exercise clinical judgment when providing care. Behavioral 01/24/2018 [facility] Care Recommendation: This patient has had 5 or more Emergency Department visits in the last 12 months. Patient requires education on the scope and purpose of the ED as an acute care provider not a Primary Care Provider and should not be utilized for chronic conditions. If patient returns to ED please contact Fela Padilla at [phone]. These are guidelines and the provider should exercise clinical judgment when providing care. Rhonda VISIT COUNT (12 MO.) 3 [facility] [address] [place] [address] LANCE Cordon TOTAL 21 NOTE: Visits indicate total known visits. ED/UCC VISIT TRACKING (12 MO.) 08/15/2018 15:07 [facility] [place] TYPE: Emergency COMPLAINT: - CONGESTION 08/11/2018 21:44 L[facility] TYPE: Emergency COMPLAINT: - VOMITING BLOOD DIAGNOSES: - Other specified respiratory disorders - Allergy status to narcotic agent status - Otitis media, unspecified, left ear - Allergy status to other antibiotic agents status - Acute pharyngitis, unspecified - Allergy status to penicillin - Acute sinusitis, unspecified - Other viral agents as the cause of diseases classified elsewhere - Other retirement (current) drug therapy - Type 2 diabetes mellitus without complications 06/23/2018 [facility] DIAGNOSES: - Vaginal Bleeding - Abnormal uterine and vaginal bleeding, unspecified - vaginal bleed - Pelvic and perineal pain 06/22/2018 19:29 LANCE S[facility] TYPE: Emergency COMPLAINT: - VAGINAL BLEEDING/1 MONTH PREG DIAGNOSES: - Other retirement (current) drug therapy - Less than 8 [...] - Nicotine dependence, unspecified, uncomplicated 05/01/2018 19:52 [facility] DIAGNOSES: - rt side back pain - Abdominal Pain - Flank Pain - Unspecified abdominal pain 04/28/2018 17:01 [facility] DIAGNOSES: - Abdominal Pain - Pelvic Pain - Pelvic and perineal pain 04/27/2018 17:36 [facility] [place] TYPE: Emergency COMPLAINT: - ABD PAIN/BACK PAIN DIAGNOSES: - Allergy status to other antibiotic agents status - Personal history of nicotine dependence - Unspecified asthma, uncomplicated - Allergy status to penicillin - Allergy status to narcotic agent status - Type 2 diabetes mellitus without complications - Pelvic and perineal pain - Other technician terminal and repeater (current) drug therapy - Bipolar disorder, unspecified 04/14/2018 14:35 [facility] [place] [facility] TYPE: Emergency COMPLAINT: - KIDNEY PAIN 02/28/2018 16:47 [facility] [place] TYPE: Emergency COMPLAINT: - SHORTNESS OF BREATH DIAGNOSES: - Unspecified asthma with (acute) exacerbation - Cough - Gout, unspecified - Unspecified osteoarthritis, unspecified site - Acute upper respiratory infection, unspecified 02/13/2018 10:34 [facility] [place] TYPE: Emergency COMPLAINT: - CHEST PAIN SHORTNESS OF BREATH DIAGNOSES: - Acute upper respiratory infection, unspecified - Chronic obstructive pulmonary disease with (acute) exacerbation 01/23/2018 12:47 [facility]al GONZALE[facility] TYPE: Urgent Care DIAGNOSES: - Pharyngitis - Pain in throat 01/22/2018 17:06 L[facility] TYPE: Emergency COMPLAINT: - POST OP ISSUES DIAGNOSES: - Left lower quadrant pain - Acquired absence of ovaries, unilateral - Other acute postprocedural pain - Type 2 diabetes mellitus without complications - Bipolar disorder, unspecified - Allergy status to penicillin - Personal history of nicotine dependence - Other technician terminal and repeater (current) drug therapy - Allergy status to [...] Acquired absence of other organs - Other retirement (current) drug therapy - Unspecified asthma, uncomplicated - Polycystic ovarian syndrome - Left lower quadrant pain - Bipolar disorder, unspecified - Acquired absence of other specified parts of digestive tract 01/14/2018 18:21 [facility] Shannan GONZALE[facility] TYPE: Emergency DIAGNOSES: - Left Flank Pain - Abdominal Pain - Pelvic and perineal pain 12/22/2017 21:50 [facility] TYPE: Emergency COMPLAINT: - ABD PAIN,VOMITING DIAGNOSES: - Allergy status to penicillin - Personal history of nicotine dependence - Epigastric pain - Type 2 diabetes mellitus without complications - Functional dyspepsia - Allergy status to narcotic agent status 12/17/2017 [facility] DIAGNOSES: - Nausea with vomiting, unspecified - Emesis - Flank Pain - Right upper quadrant pain - emesis, back \E\T\E\ abd pain 12/05/2017 18:51 [facility]: Emergency DIAGNOSES: - Pelvic and perineal pain - Abdominal Pain - pelvic pain 11/09/2017 18:08 [facility] TYPE: Emergency COMPLAINT: - COUGH DIAGNOSES: - Acquired absence of other specified parts of digestive tract - Allergy status to penicillin - Allergy status to narcotic agent status - Other technician terminal and repeater (current) drug therapy - skilled nursing (current) use of systemic steroids - Bronchitis, not specified as acute or chronic - Cough 10/16/2017 11:[address] [facility] TYPE: Emergency COMPLAINT: - PELVIC PAIN DIAGNOSES: - Other technician terminal and repeater (current) drug therapy - Allergy status to narcotic agent status - Pelvic and perineal pain - Endometriosis, unspecified - Allergy status to penicillin - OTHER SPECIFIED POSTPROCEDURAL STATES - Acquired absence of other specified parts of digestive tract - Other specified postprocedural states 10/10/2017 14:54 [facility] G[facility]ALE[facility] TYPE: Emergency DIAGNOSES: - abd pain - Abdominal Pain - Pelvic and perineal pain Plus 2 More Visits INPATIENT VISIT TRACKING (12 MO.) No inpatient visits to display in this time frame [id number]
[2018-08-15] MEDS ORDERED: PREDNISONE20 MG PO (18:01)
== END 2018-08-15 18:08 | disposition home or self-care (01) ==
LOC: ED 15:05
DX: J20.9 Acute bronchitis, unspecified (principal); E11.9 Type 2 diabetes mellitus without complications; Z88.0 Allergy status to penicillin; Z88.1 Allergy status to other antibiotic agents; Z79.899 Other long term (current) drug therapy
CPT/HCPCS: 99283; J7512

== ENCOUNTER 2018-11-25 19:41 | Emergency (ER) | payer OTHER ==
[~2018-11-25] VITALS: Ht 165.1 cm; Wt 115.7 kg
[~2018-11-25 19:41] MED LIST changes: +ADDERALL 30 MG30 MG PO; +LATUDA80 MG PO; +PREDNISONE20 MG PO
--- OUTSIDE RECORDS SUMMARY | 2018-11-25 19:46 | XMS ---
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 TABOR Security Technical Engineer Events No recent Security Events currently on file CRITERIA MET - Group Notification - 6 ED Visits in 6 Months - [facility] - Has Care Guidelines - [facility] - 2 Visits in 30 Days CARE PROVIDERS ROSALBA SNOW [facility] Current PHONE: Unknown [facility] Provider Current PHONE: [phone] ROSALBA SNOW Primary Care Current PHONE: [phone] Ramsey Corcoran - Case or Floor Scrubber Current [employer] PHONE: [phone] ROSALBA SNOW Primary Care Current PHONE: [phone] Guidelines Source: [facility] Guidelines Date: 08/10/2018 Other Information: Currently enrolled in mental health services with [facility] in [place].\T\nbsp; She has missed the last 5 scheduled appointments.\T\nbsp; Please encourage her to contact [facility] for her mental health concerns.\T\nbsp; [phone] Care History Behavioral 01/24/2018 [facility] Care Recommendation: This patient has had 5 or more Emergency Department visits in the last 12 months. Patient requires education on the scope and purpose of the ED as an acute care provider not a Primary Care Provider and should not be utilized for chronic conditions. If patient returns to ED please contact Community Health WorkerFela at [phone]. These are guidelines and the provider should exercise clinical judgment when providing care. Medical/Surgical 04/28/2018 [facility] Care Recommendation: - SHAHLA RITCHIE SCHEDULED AN APT FOR PATIENT TO ESTABLISH CARE WITH DR ALBARADO ON October @ 8:00AM. CHW PROVIDED APPOINTMENT INFORMATION FACE TO FACE WITH PATIENT IN THE ED AND DISCUSSED ED UTILIZATION. - PATIENT CANCELLED APT TO ESTABLISH CARE WITH DR MCCALL ON 10/25/18. DID NOT SCHEDULE ANOTHER APT TO ESTABLISH CARE. - TIGREW spoke to Dr Abarca office. Patient has [...] Emergency Department visits in the last 12 months.\T\nbsp; Patient requires education on the scope and purpose of the ED as an acute care provider not a Primary Care Provider and should not be utilized for chronic conditions.\T\nbsp; If patient returns to ED please contact Community Health Worker Fela at [phone]. These are guidelines and the provider should exercise clinical judgment when providing care. E.D. VISIT COUNT (12 MO.) [address] TOTAL 18 NOTE: Visits indicate total known visits. ED/UCC VISIT TRACKING (12 MO.) 11/25/2018 19:42 [facility] [place] TYPE: Emergency COMPLAINT: - SORE THROAT 11/02/2018 08:23 [facility] [place] TYPE: Emergency COMPLAINT: - ABD PAIN DIAGNOSES: - Other chronic pain - Right lower quadrant pain - Bipolar disorder, unspecified - Other termite exterminator helper (current) drug therapy - Allergy status to narcotic agent status - Allergy status to penicillin - Allergy status to other antibiotic agents status - Unspecified asthma, uncomplicated - Type 2 diabetes mellitus without complications 08/15/2018 15:07 [facility] [place] TYPE: Emergency COMPLAINT: - CONGESTION DIAGNOSES: - Allergy status to penicillin - Type 2 diabetes mellitus without complications - Other termite exterminator helper (current) drug therapy - Cough - Acute bronchitis, unspecified - Allergy status to other antibiotic agents status 08/11/2018 21:44 [facility] [place] TYPE: Emergency COMPLAINT: - VOMITING BLOOD DIAGNOSES: - Other specified respiratory disorders - Allergy status to narcotic agent status - Otitis media, unspecified, left ear - Allergy status to other antibiotic agents status - Acute pharyngitis, unspecified - Allergy status to penicillin - Acute sinusitis, unspecified - Other viral agents as the cause of diseases classified elsewhere - Other residential (current) drug therapy - Type 2 diabetes mellitus without complications 06/23/2018 19:48 [facility] DIAGNOSES: - Vaginal Bleeding - Abnormal uterine and vaginal bleeding, unspecified - vaginal bleed - Pelvic and perineal pain 06/22/2018 19:29 [facility] [place] TYPE: Emergency COMPLAINT: - VAGINAL BLEEDING/1 MONTH PREG DIAGNOSES: - Other termite exterminator helper (current) drug therapy - Less than 8 [...] - Nicotine dependence, unspecified, uncomplicated 05/01/2018 19:52 [facility] [place] TYPE: Emergency DIAGNOSES: - rt side back pain - Abdominal Pain - Flank Pain - Unspecified abdominal pain 04/28/2018 17:01 [facility] Emergency DIAGNOSES: - Abdominal Pain - Pelvic Pain - Pelvic and perineal pain 04/27/2018 17:36 [facility] [place] TYPE: Emergency COMPLAINT: - ABD PAIN/BACK PAIN DIAGNOSES: - Allergy status to other antibiotic agents status - Personal history of nicotine dependence - Unspecified asthma, uncomplicated - Allergy status to penicillin - Allergy status to narcotic agent status - Type 2 diabetes mellitus without complications - Pelvic and perineal pain - Other residential (current) drug therapy - Bipolar disorder, unspecified 04/14/2018 14:35 [facility] [place] TYPE: Emergency COMPLAINT: - KIDNEY PAIN 02/28/2018 16:47 [facility] [place] TYPE: Emergency COMPLAINT: - SHORTNESS OF BREATH DIAGNOSES: - Unspecified asthma with (acute) exacerbation - Cough - Gout, unspecified - Unspecified osteoarthritis, unspecified site - Acute upper respiratory infection, unspecified 02/13/2018 10:34 [facility] [place] TYPE: Emergency COMPLAINT: - CHEST PAIN SHORTNESS OF BREATH DIAGNOSES: - Acute upper respiratory infection, unspecified - Chronic obstructive pulmonary disease with (acute) exacerbation 01/23/2018 12:47 [facility] TYPE: Urgent Care DIAGNOSES: - Pharyngitis - Pain in throat 01/22/2018 17:06 [facility] [place] TYPE: Emergency COMPLAINT: - POST OP ISSUES DIAGNOSES: - Left lower quadrant pain - Acquired absence of ovaries, unilateral - Other acute postprocedural pain - Type 2 diabetes mellitus without complications - Bipolar disorder, unspecified - Allergy status to penicillin - Personal history of nicotine dependence - Other residential (current) drug therapy - Allergy status to narcotic agent status - Allergy status to other antibiotic agents status - Unspecified asthma, uncomplicated 01/15/2018 12:55 [facility] [place] TYPE: Emergency COMPLAINT: - ABDOMINAL PAIN DIAGNOSES: - Allergy status to penicillin - Type 2 diabetes mellitus without complications - Personal history of nicotine dependence - Allergy status to narcotic agent status - Acquired absence of other organs - Other residential (current) drug therapy - Unspecified asthma, uncomplicated - Polycystic ovarian syndrome - Left lower quadrant pain - Bipolar disorder, unspecified - Acquired absence of other specified parts of digestive tract 01/14/2018 18:21 [facility] Kinsey GONZALE[facility] TYPE: Emergency DIAGNOSES: - Left Flank Pain - Abdominal Pain - Pelvic and perineal pain 12/22/2017 21:50 [facility] TYPE: Emergency COMPLAINT: - ABD PAIN,VOMITING DIAGNOSES: - Allergy status to penicillin - Personal history of nicotine dependence - Epigastric pain - Type 2 diabetes mellitus without complications - Functional dyspepsia - Allergy status to narcotic agent status 12/17/2017 [facility]: [facility] DIAGNOSES: - Nausea with vomiting, unspecified - Emesis - Flank Pain - Right upper quadrant pain - emesis, back \E\T\E\ abd pain 12/05/2017 18:51 [facility] DIAGNOSES: - Pelvic and perineal pain - Abdominal Pain - pelvic pain INPATIENT VISIT TRACKING (12 MO.) No inpatient visits to display in this time frame [id number]
[2018-11-25] MEDS ORDERED: IMITREX25 MG PO (20:19)
[2018-11-25] MEDS ORDERED: ZITHROMAX250 MG PO (20:19)
[2018-11-25] MEDS ORDERED: CEPHALEXIN500 MG PO (21:11)
[2018-11-25] MEDS ORDERED: NORCO 5-325 TA1 EACH PO (21:11)
== END 2018-11-25 22:02 | disposition home or self-care (01) ==
LOC: ED 19:41
DX: J02.9 Acute pharyngitis, unspecified (principal); E11.9 Type 2 diabetes mellitus without complications; F31.9 Bipolar disorder, unspecified; J45.909 Unspecified asthma, uncomplicated; Z87.891 Personal history of nicotine dependence; Z88.0 Allergy status to penicillin; Z88.5 Allergy status to narcotic agent; Z79.52 Long term (current) use of systemic steroids; Z79.899 Other long term (current) drug therapy
CPT/HCPCS: 99282

== ENCOUNTER 2018-12-19 22:40 | Emergency (ER) | payer OTHER ==
[~2018-12-19] VITALS: Ht 165.1 cm; Wt 118.8 kg
[~2018-12-19 22:40] MED LIST changes: +CEPHALEXIN500 MG PO; +IMITREX25 MG PO
--- OUTSIDE RECORDS SUMMARY | 2018-12-19 22:46 | XMS ---
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 TABOR Security Burial Needs Salesperson Events No recent Security Events currently on file CRITERIA MET - Group Notification - 6 ED Visits in 6 Months - [facility] - Has Care Guidelines - [facility] - 2 Visits in 30 Days CARE PROVIDERS Krishna Sommers Internal Medicine: Pulmonary Disease 11/30/2018-Current PHONE: Unknown MARIA TERESA ALBARADO Student in an Organized Health Care 11/30/2018-Current Education/Training Program PHONE: [phone] EDY [facility] Current PHONE: Unknown Wilda Ellington Mental Health Provider Current PHONE: [phone] ROSALBA SNOW Primary Care Current PHONE: [phone] Ramsey Corcoran - Case or Glass Carrier [facility] PHONE: [phone] ROSALBA SNOW Primary Care Current PHONE: [phone] Guidelines Source: [facility] [place] Guidelines Date: 08/10/2018 Other Information: Currently enrolled in mental health services with [facility] in [place].\T\nbsp; She has missed the last 5 scheduled appointments.\T\nbsp; Please encourage her to contact [facility] for her mental health concerns.\T\nbsp; [phone] Care History Behavioral 01/24/2018 [facility] Care Recommendation: This patient has had 5 or more Emergency Department visits in the last 12 months. Patient requires education on the scope and purpose of the ED as an acute care provider not a Primary Care Provider and should not be utilized for chronic conditions. If patient returns to ED please contact [facility] Fela Mendoza at [phone]. These are guidelines and the provider should exercise clinical judgment when providing care. Medical/Surgical 04/28/2018 [facility] Care Recommendation: - SHAHLA RITCHIE SCHEDULED AN APT FOR PATIENT TO ESTABLISH CARE WITH DR ALBARADO ON October @ 8:00AM. CHW PROVIDED APPOINTMENT INFORMATION FACE TO FACE WITH PATIENT IN THE ED AND DISCUSSED ED UTILIZATION. - PATIENT CANCELLED APT TO ESTABLISH CARE WITH DR SOMMERS ON 10/25/18. DID NOT SCHEDULE ANOTHER APT TO ESTABLISH CARE. - CHW spoke to Dr Abarca office. [...] If patient returns to ED please contact [facility] Fela Mares at [phone]. These are guidelines and the provider should exercise clinical judgment when providing care. E.D. VISIT COUNT (12 MO.) [address] [facility] TOTAL 17 NOTE: Visits indicate total known visits. ED/UCC VISIT TRACKING (12 MO.) 12/19/2018 22:41 [facility] [place] TYPE: Emergency COMPLAINT: - L ELBOW PAIN/INJURY 11/25/2018 19:42 [facility] [place] TYPE: Emergency COMPLAINT: - SORE THROAT DIAGNOSES: - Bipolar disorder, unspecified - Personal history of nicotine dependence - Allergy status to penicillin - Allergy status to narcotic agent status - Type 2 diabetes mellitus without complications - Unspecified asthma, uncomplicated - Other silviculture teacher (current) drug therapy - Acute pharyngitis, unspecified - long-term (current) use of systemic steroids 11/02/2018 08:23 [facility] [place] TYPE: Emergency COMPLAINT: - ABD PAIN DIAGNOSES: - Other chronic pain - Right lower quadrant pain - Bipolar disorder, unspecified - Other senior living (current) drug therapy - Allergy status to narcotic agent status - Allergy status to penicillin - Allergy status to other antibiotic agents status - Unspecified asthma, uncomplicated - Type 2 diabetes mellitus without complications 08/15/2018 15:07 [facility] [place] TYPE: Emergency COMPLAINT: - CONGESTION DIAGNOSES: - Allergy status to penicillin - Type 2 diabetes mellitus without complications - Other silviculture teacher (current) drug therapy - Cough - Acute [...] cause of diseases classified elsewhere - Other silviculture teacher (current) drug therapy - Type 2 diabetes mellitus without complications 06/23/2018 [facility]48 [facility] DIAGNOSES: - Vaginal Bleeding - Abnormal uterine and vaginal bleeding, unspecified - vaginal bleed - Pelvic and perineal pain 06/22/2018 19:29 [facility] TYPE: Emergency COMPLAINT: - VAGINAL BLEEDING/1 MONTH PREG DIAGNOSES: - Other silviculture teacher (current) drug therapy - Less than 8 [...] - Nicotine dependence, unspecified, uncomplicated 05/01/2018 19:52 [facility]: Emergency DIAGNOSES: - rt side back pain - Abdominal Pain - Flank Pain - Unspecified abdominal pain 04/28/2018 17:01 [facility] Shannan GONZALEZ TYPE: Emergency DIAGNOSES: - Abdominal Pain - Pelvic Pain - Pelvic and perineal pain 04/27/2018 17:[address] 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 - Bipolar disorder, unspecified 04/14/2018 14:35 [facility] [place] TYPE: Emergency COMPLAINT: - KIDNEY PAIN 02/28/2018 16:47 [facility] [place] [facility] COMPLAINT: - SHORTNESS OF BREATH DIAGNOSES: - Unspecified asthma with (acute) exacerbation - Cough - Gout, unspecified - Unspecified osteoarthritis, unspecified site - Acute upper respiratory infection, unspecified 02/13/2018 10:34 [facility] [place] TYPE: Emergency COMPLAINT: - CHEST PAIN SHORTNESS OF BREATH DIAGNOSES: - Acute upper respiratory infection, unspecified - Chronic obstructive pulmonary disease with (acute) exacerbation 01/23/2018 12:47 [facility] TYPE: Urgent Care DIAGNOSES: - Pharyngitis - Pain in throat 01/22/2018 17:06 [facility] [place] TYPE: Emergency COMPLAINT: - POST OP ISSUES DIAGNOSES: - Left lower quadrant pain - Acquired absence of ovaries, unilateral - Other acute postprocedural pain - Type 2 diabetes mellitus without complications - Bipolar disorder, unspecified - Allergy status to penicillin - Personal history of nicotine dependence - Other silviculture teacher (current) drug therapy - Allergy status to [...] Acquired absence of other organs - Other senior living (current) drug therapy - Unspecified asthma, uncomplicated - Polycystic ovarian syndrome - Left lower quadrant pain - Bipolar disorder, unspecified - Acquired absence of other specified parts of digestive tract 01/14/2018 18:21 [facility] DIAGNOSES: - Left Flank Pain - Abdominal Pain - Pelvic and perineal pain 12/22/2017 21:50 [facility] TYPE: Emergency COMPLAINT: - ABD PAIN,VOMITING DIAGNOSES: - Allergy status to penicillin - Personal history of nicotine dependence - Epigastric pain - Type 2 diabetes mellitus without complications - Functional dyspepsia - Allergy status to narcotic agent status INPATIENT VISIT TRACKING (12 MO.) No inpatient visits to display in this time frame [email or web address]
== END 2018-12-20 02:40 | disposition home or self-care (01) ==
LOC: ED 22:40
DX: S53.402A Unspecified sprain of left elbow, initial encounter (principal); E11.9 Type 2 diabetes mellitus without complications; F31.9 Bipolar disorder, unspecified; J45.909 Unspecified asthma, uncomplicated; Z90.49 Acquired absence of other specified parts of digestive tract; Z88.0 Allergy status to penicillin; Z88.5 Allergy status to narcotic agent; Z79.899 Other long term (current) drug therapy; W01.0XXA Fall on same level from slipping, tripping and stumbling without subsequent striking against object, initial encounter
CPT/HCPCS: 73080; 99283

== ENCOUNTER 2019-01-30 21:50 | Emergency (ER) | payer SELFPAY ==
[~2019-01-30] VITALS: Ht 165.1 cm; Wt 118.8 kg
--- OUTSIDE RECORDS SUMMARY | 2019-01-30 21:54 | XMS ---
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 TABOR Security [place] Seamer Events No recent Security Events currently on file CRITERIA MET - Group Notification - 6 ED Visits in 6 Months - [facility] - Has Care Guidelines - PDMP CARE PROVIDERS Krishna Sommers Internal Medicine: Pulmonary Disease 11/30/2018-Current PHONE: Unknown MARIA TERESA ALBARADO Student in an Organized Health Care 11/30/2018-Current Education/Training Program PHONE: [phone] ROSALBA SNOW [facility] Current PHONE: Unknown Wilda Ellington Mental Health Provider Current PHONE: [phone] ROSALBA SNOW Primary Care Current PHONE: [phone] Ramsey Corcoran - Case or Clinical Pharmacy Technician Current [facility] PHONE: [phone] Guidelines Source: [facility] [place] Guidelines Date: 08/10/2018 Other Information: Currently enrolled in mental health services with [facility] in [place].\T\nbsp; She has missed the last 5 scheduled appointments.\T\nbsp; Please encourage her to contact [employer] [facility] for her mental health concerns.\T\nbsp; [phone] Care History Medical/Surgical 04/28/2018 [facility] Care Recommendation: - SHAHLA RITCHIE SCHEDULED AN [...] If patient returns to ED please contact [facility] Fela Mares at [phone]. These are guidelines and the provider should exercise clinical judgment when providing care. Behavioral 01/24/2018 [facility] Care Recommendation: This patient has had 5 or more Emergency Department visits in the last 12 months. Patient requires education on the scope and purpose of the ED as an acute care provider not a Primary Care Provider and should not be utilized for chronic conditions. If patient returns to ED please contact [facility] Fela Mares at [phone]. These are guidelines and the provider should exercise clinical judgment when providing care. E.D. VISIT COUNT (12 MO.) 3 [facility] 3 [facility] 8 [facility] TOTAL 14 NOTE: Visits indicate total known visits. ED/UCC VISIT TRACKING (12 MO.) 01/30/2019 21:51 [facility] [place] TYPE: Emergency COMPLAINT: - COUGH/FLU SYMPTOMS 12/19/2018 22:41 [facility] [place] TYPE: Emergency COMPLAINT: - L ELBOW PAIN/INJURY DIAGNOSES: - Pain in left elbow - Unspecified sprain of left elbow, initial encounter - Unspecified asthma, uncomplicated - Bipolar disorder, unspecified - Other emt intermediate (current) drug therapy - Allergy status to narcotic agent status - Acquired absence of other specified parts of digestive tract - Type 2 diabetes mellitus without complications - Fall on same level from slipping, tripping and stumbling without subsequent striking against object, initial encounter - Allergy status to penicillin 11/25/2018 19:42 [facility] [place] TYPE: Emergency COMPLAINT: - SORE THROAT DIAGNOSES: - Bipolar disorder, unspecified - Personal history of nicotine dependence - Allergy status to penicillin - Allergy status to narcotic agent status - Type 2 diabetes mellitus without complications - Unspecified asthma, uncomplicated - Other prison (current) drug therapy - Acute pharyngitis, unspecified - emt intermediate (current) use of systemic steroids 11/02/2018 08:23 [facility] [place] TYPE: Emergency COMPLAINT: - ABD PAIN DIAGNOSES: - Other chronic pain - Right lower quadrant pain - Bipolar disorder, unspecified - Other prison (current) drug therapy - Allergy status to narcotic agent status - Allergy status to penicillin - Allergy status to other antibiotic agents status - Unspecified asthma, uncomplicated - Type 2 diabetes mellitus without complications 08/15/2018 15:07 [facility] [place] TYPE: Emergency COMPLAINT: - CONGESTION DIAGNOSES: - Allergy status to penicillin - Type 2 diabetes mellitus without complications - Other prison (current) drug therapy - Cough - Acute [...] cause of diseases classified elsewhere - Other emt intermediate (current) drug therapy - Type 2 diabetes mellitus without complications 06/23/2018 19:48 [facility] DIAGNOSES: - Vaginal Bleeding - Abnormal uterine and vaginal bleeding, unspecified - vaginal bleed - Pelvic and perineal pain 06/22/2018 19:[address] [facility] [place] TYPE: Emergency COMPLAINT: - VAGINAL BLEEDING/1 MONTH PREG DIAGNOSES: - Other prison (current) drug therapy - Less than 8 [...] - Nicotine dependence, unspecified, uncomplicated 05/01/2018 19:52 [facility] [place] [facility]: Emergency DIAGNOSES: - rt side back pain - Abdominal Pain - Flank Pain - Unspecified abdominal pain 04/28/2018 17:01 [facility] [place] TYPE: Emergency DIAGNOSES: - Abdominal Pain - Pelvic Pain - Pelvic and perineal pain 04/27/2018 17:36 [facility] [place] [facility] COMPLAINT: - ABD PAIN/BACK PAIN DIAGNOSES: - Allergy status to other antibiotic agents status - Personal history of nicotine dependence - Unspecified asthma, uncomplicated - Allergy status to penicillin - Allergy status to narcotic agent status - Type 2 diabetes mellitus without complications - Pelvic and perineal pain - Other prison (current) drug therapy - Bipolar disorder, unspecified 04/14/2018 14:35 [facility] [place] TYPE: Emergency COMPLAINT: - KIDNEY PAIN 02/28/2018 16:47 [facility] [place] TYPE: Emergency COMPLAINT: - SHORTNESS OF BREATH DIAGNOSES: - Unspecified asthma with (acute) exacerbation - Cough - Gout, unspecified - Unspecified osteoarthritis, unspecified site - Acute upper respiratory infection, unspecified 02/13/2018 10:34 [facility] [place] TYPE: Emergency COMPLAINT: - CHEST PAIN SHORTNESS OF BREATH DIAGNOSES: - Acute upper respiratory infection, unspecified - Chronic obstructive pulmonary disease with (acute) exacerbation INPATIENT VISIT TRACKING (12 MO.) No inpatient visits to display in this time frame [email or web address]
[2019-01-30] MEDS ORDERED: PROVENTIL HFA6.7 GM INH (22:57)
== END 2019-01-30 23:08 | disposition home or self-care (01) ==
LOC: ED 21:50
DX: R05 Cough (principal); E11.9 Type 2 diabetes mellitus without complications; F31.9 Bipolar disorder, unspecified; J45.909 Unspecified asthma, uncomplicated; Z88.0 Allergy status to penicillin; Z88.5 Allergy status to narcotic agent; Z79.899 Other long term (current) drug therapy
CPT/HCPCS: 71046; 99283-25

== ENCOUNTER 2019-02-28 14:24 | Emergency (ER) | payer OTHER ==
[~2019-02-28] VITALS: Ht 165.1 cm; Wt 118.8 kg
[~2019-02-28 14:24] MED LIST changes: +PROVENTIL HFA6.7 GM INH
--- OUTSIDE RECORDS SUMMARY | 2019-02-28 14:26 | XMS ---
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 TABOR Security Dye House Hand Events No recent Security Events currently on file CRITERIA MET - Group Notification - 6 ED Visits in 6 Months - [facility] - Has Care Guidelines - PDMP - [facility] - 2 Visits in 30 Days CARE PROVIDERS Krishna Sommers Internal Medicine: Pulmonary Disease 11/30/2018-Current PHONE: Unknown MARIA TERESA ALBARADO Student in an Organized Health Care 11/30/2018-Current Education/Training Program PHONE: [phone] EDY [facility] Current PHONE: Unknown MARIA TERESA ALBARADO Primary Care Current PHONE: Unknown Wilda Ellington Mental Health Provider Current PHONE: [phone] ROSALBA SNOW Primary Care Current PHONE: [phone] Ramsey Corcoran - Case or Map Editor Current [employer] PHONE: [phone] ROSALBA SNOW Primary Care Current PHONE: [phone] Guidelines Source: [facility] Guidelines Date: 08/10/2018 Other Information: Currently enrolled in mental health services with [facility] in [place].\T\nbsp; She has missed the last 5 scheduled appointments.\T\nbsp; Please encourage her to contact [facility] for her mental health concerns.\T\nbsp; [phone] Care History Medical/Surgical 04/28/2018 [facility] Care Recommendation: - SHAHLA RITCHIE SCHEDULED AN [...] If patient returns to ED please contact [facility] Fela Mares at [phone]. These are guidelines and the provider should exercise clinical judgment when providing care. Behavioral 01/24/2018 [facility] Care Recommendation: This patient has had 5 or more Emergency Department visits in the last 12 months. Patient requires education on the scope and purpose of the ED as an acute care provider not a Primary Care Provider and should not be utilized for chronic conditions. If patient returns to ED please contact Fela Padilla at [phone]. These are guidelines and the provider should exercise clinical judgment when providing care. E.D. VISIT COUNT (12 MO.) 3 [facility] 3 [facility]Brittnee [address] [facility] TOTAL 15 NOTE: Visits indicate total known visits. ED/UCC VISIT TRACKING (12 MO.) 02/28/2019 14:24 [facility] [place] TYPE: Emergency COMPLAINT: - LEFT RING FINGER INJURY 02/05/2019 12:34 [facility] [place] TYPE: Emergency DIAGNOSES: - Unspecified fall due to ice and snow, initial encounter - Pain in left elbow - L arm injury 01/30/2019 21:51 [facility] [place] TYPE: Emergency COMPLAINT: - COUGH/FLU SYMPTOMS DIAGNOSES: - Allergy status to narcotic agent status - Allergy status to penicillin - Type 2 diabetes mellitus without complications - Unspecified asthma, uncomplicated - Cough - Bipolar disorder, unspecified - Other intermediate (current) drug therapy 12/19/2018 22:41 [facility] [place] TYPE: Emergency COMPLAINT: - L ELBOW PAIN/INJURY DIAGNOSES: - Pain in left elbow - Unspecified sprain of left elbow, initial encounter - Unspecified asthma, uncomplicated - Bipolar disorder, unspecified - Other supervisor intermediates (current) drug therapy - Allergy status to [...] complications - Unspecified asthma, uncomplicated - Other supervisor intermediates (current) drug therapy - Acute pharyngitis, unspecified - custodial (current) use of systemic steroids 11/02/2018 08:23 [facility] [place] TYPE: Emergency COMPLAINT: - ABD PAIN DIAGNOSES: - Other chronic pain - Right lower quadrant pain - Bipolar disorder, unspecified - Other supervisor intermediates (current) drug therapy - Allergy status to narcotic agent status - Allergy status to penicillin - Allergy status to other antibiotic agents status - Unspecified asthma, uncomplicated - Type 2 diabetes mellitus without complications 08/15/2018 15:07 [facility] [place] TYPE: Emergency COMPLAINT: - CONGESTION DIAGNOSES: - Allergy status to penicillin - Type 2 diabetes mellitus without complications - Other supervisor intermediates (current) drug therapy - Cough - Acute [...] cause of diseases classified elsewhere - Other supervisor intermediates (current) drug therapy - Type 2 diabetes mellitus without complications 06/23/2018 19:48 [facility] Kristal GONZALEZ TYPE: Emergency DIAGNOSES: - Vaginal Bleeding - Abnormal uterine and vaginal bleeding, unspecified - vaginal bleed - Pelvic and perineal pain 06/22/2018 19:29 [facility] [place] TYPE: Emergency COMPLAINT: - VAGINAL BLEEDING/1 MONTH PREG DIAGNOSES: - Other intermediate (current) drug therapy - Less than 8 [...] dependence, unspecified, uncomplicated 05/01/2018 19:52 [facility] Kristal GONZALEZ TYPE: Emergency DIAGNOSES: - rt side back pain - Abdominal Pain - Flank Pain - Unspecified abdominal pain 04/28/2018 17:01 [facility] Mary JoyaYakelinAidaYakelin GONZALEZ TYPE: Emergency DIAGNOSES: - Abdominal Pain - Pelvic Pain - Pelvic and perineal pain 04/27/2018 17:36 [facility] [place]: Emergency COMPLAINT: - ABD PAIN/BACK PAIN DIAGNOSES: - Allergy status to other antibiotic agents status - Personal history of nicotine dependence - Unspecified asthma, uncomplicated - Allergy status to penicillin - Allergy status to narcotic agent status - Type 2 diabetes mellitus without complications - Pelvic and perineal pain - Other intermediate (current) drug therapy - Bipolar disorder, unspecified 04/14/2018 14:35 [facility] [place] TYPE: Emergency COMPLAINT: - KIDNEY PAIN 02/28/2018 16:47 [facility] [place] TYPE: Emergency COMPLAINT: - SHORTNESS OF BREATH DIAGNOSES: - Unspecified asthma with (acute) exacerbation - Cough - Gout, unspecified - Unspecified osteoarthritis, unspecified site - Acute upper respiratory infection, unspecified INPATIENT VISIT TRACKING (12 MO.) No inpatient visits to display in this time frame [id number]
[2019-02-28] MEDS ORDERED: LATUDA40 MG PO (14:44)
[2019-02-28] MEDS ORDERED: IBU800 MG PO (16:37)
[2019-03-01] MEDS ORDERED: SEROQUEL25 MG PO (17:44)
== END 2019-02-28 17:32 | disposition home or self-care (01) ==
LOC: ED 14:24
DX: S62.665A Nondisplaced fracture of distal phalanx of left ring finger, initial encounter for closed fracture (principal); W23.0XXA Caught, crushed, jammed, or pinched between moving objects, initial encounter; E11.9 Type 2 diabetes mellitus without complications; F31.9 Bipolar disorder, unspecified; J45.909 Unspecified asthma, uncomplicated; Z88.0 Allergy status to penicillin; Z88.5 Allergy status to narcotic agent; Z79.899 Other long term (current) drug therapy
CPT/HCPCS: 29130; 73140; 99283-25

== ENCOUNTER 2019-03-01 17:21 | Emergency (ER) | payer SELFPAY ==
[~2019-03-01] VITALS: Ht 165.1 cm; Wt 115.5 kg
[~2019-03-01 17:21] MED LIST changes: +IBU800 MG PO; +LATUDA40 MG PO
--- OUTSIDE RECORDS SUMMARY | 2019-03-01 17:24 | XMS ---
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 TABOR Security Counterintelligence Analyst Events No recent Security Events currently on file CRITERIA MET - Group Notification - 6 ED Visits in 6 Months - [facility] - Has Care Guidelines - PDMP - [facility] - 2 Visits in 30 Days CARE PROVIDERS Krishna Sommers Internal Medicine: Pulmonary Disease 11/30/2018-Current PHONE: Unknown MARIA TERESA ALBARADO Student in an Organized Health Care 11/30/2018-Current Education/Training Program PHONE: [phone] EDY [facility] Current PHONE: Unknown MARIA TERESA ALBARADO Primary Care Current PHONE: Unknown [facility] Provider Current PHONE: [phone] ROSALBA SNOW Primary Care Current PHONE: [phone] Ramsey Corcoran - Case or Breast Worker [facility] PHONE: [phone] Guidelines Source: [facility] [place] Guidelines Date: 08/10/2018 Other Information: Currently enrolled in mental health services with [facility] in [place].\T\nbsp; She has missed the last 5 scheduled appointments.\T\nbsp; Please encourage her to contact [facility] for her mental health concerns.\T\nbsp; [phone] Care History Medical/Surgical 04/28/2018 [facility] Care Recommendation: - SHAHLA RITCHIE SCHEDULED AN [...] If patient returns to ED please contact [facility] Fela Mares at [phone]. These are guidelines and the provider should [...] If patient returns to ED please contact [facility] Fela Mares at [phone]. These are guidelines and the provider should exercise clinical judgment when providing care. E.D. VISIT COUNT ([address] 2 [facility] 3 [facility] 10 [facility] TOTAL 15 NOTE: Visits indicate total known visits. ED/UCC VISIT TRACKING (12 MO.) 03/01/2019 17:22 [facility] [place] TYPE: Emergency COMPLAINT: - L FINGER INJURY 02/28/2019 14:24 [facility] [place] TYPE: Emergency COMPLAINT: - LEFT RING FINGER INJURY 02/05/2019 12:34 [facility] [place] TYPE: Emergency DIAGNOSES: - Unspecified fall [...] Cough - Bipolar disorder, unspecified - Other manager long term care (current) drug therapy 12/19/2018 22:41 [facility] [place] TYPE: Emergency COMPLAINT: - L ELBOW PAIN/INJURY DIAGNOSES: - Pain in left elbow - Unspecified sprain of left elbow, initial encounter - Unspecified asthma, uncomplicated - Bipolar disorder, unspecified - Other prison [...] drug therapy - Acute pharyngitis, unspecified - prison (current) use of systemic steroids 11/02/2018 08:23 [...] cause of diseases classified elsewhere - Other manager long term care (current) drug therapy - Type 2 diabetes mellitus without complications 06/23/2018 19:[address] [facility] [place] GONZALEZ TYPE: Emergency DIAGNOSES: - Vaginal Bleeding - Abnormal uterine and vaginal bleeding, unspecified - vaginal bleed - Pelvic and perineal pain 06/22/2018 19:29 [facility] [place] TYPE: Emergency COMPLAINT: - VAGINAL [...] - Nicotine dependence, unspecified, uncomplicated 05/01/2018 19:52 [facility] [place] TYPE: Emergency DIAGNOSES: - rt side back pain - Abdominal Pain - Flank Pain - Unspecified abdominal pain 04/28/2018 17:01 [facility] [place] TYPE: Emergency DIAGNOSES: - Abdominal Pain - Pelvic Pain - Pelvic and perineal pain 04/27/2018 17:[address] [facility] [place] TYPE: [...] therapy - Bipolar disorder, unspecified 04/14/2018 14:35 [facility] [place] TYPE: Emergency COMPLAINT: - KIDNEY PAIN INPATIENT VISIT TRACKING (12 MO.) No inpatient visits to display in this time frame [id number]
[2019-03-01] MEDS ORDERED: SEROQUEL25 MG PO (17:44)
== END 2019-03-01 17:45 | disposition home or self-care (01) ==
LOC: ED 17:21
DX: S69.92XD Unspecified injury of left wrist, hand and finger(s), subsequent encounter (principal); W22.8XXD Striking against or struck by other objects, subsequent encounter

== ENCOUNTER 2019-03-14 17:20 | Emergency (ER) | payer OTHER ==
[~2019-03-14] VITALS: Ht 165.1 cm; Wt 116.1 kg
[~2019-03-14 17:20] MED LIST changes: +SEROQUEL25 MG PO
--- OUTSIDE RECORDS SUMMARY | 2019-03-14 17:24 | XMS ---
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 TABOR Security Client Evaluator Events No recent Security Events currently on file CRITERIA MET - Group Notification - 6 ED Visits in 6 Months - [facility] - Has Care Guidelines - PDMP - [facility] - 2 Visits in 30 Days CARE PROVIDERS Krishna Sommers Internal Medicine: Pulmonary Disease 11/30/2018-Current PHONE: Unknown MARIA TERESA ALBARADO Student in an Organized Health Care 11/30/2018-Current Education/Training Program PHONE: [phone] EDY [facility] Current PHONE: Unknown MARIA TERESA ALBARADO Primary Care Current PHONE: Unknown CLIFF GOOD Primary Care Romero ALICEA PHONE: Unknown Wilda Ellington Mental Health Provider Current PHONE: [phone] ROSALBA SNOW Primary Care Current PHONE: [phone] Ramsey Corcoran - Case or Medical Support Assistant Current [employer] PHONE: [phone] Guidelines Source: Rakel - Regulo Guidelines Date: 08/10/2018 Other Information: Currently enrolled in mental health services with [facility] in [place].\T\nbsp; She has missed the last 5 scheduled appointments.\T\nbsp; Please encourage her to contact [facility] for her mental health concerns.\T\nbsp; [phone] Care History Medical/Surgical 04/28/2018 [facility] Care Recommendation: - SHAHLA RITCHIE [...] If patient returns to ED please contact [facility] Fela Mares at [phone]. These are guidelines and the provider should exercise clinical judgment when providing care. Behavioral 01/24/2018 [facility] Care Recommendation: This patient has had 5 or more Emergency Department visits in the last 12 months. Patient requires education on the scope and purpose of the ED as an acute care provider not a Primary Care Provider and should not be utilized for chronic conditions. If patient returns to ED please contact Fela Padilla at [phone]. These are guidelines and the provider should exercise clinical judgment when providing care. E.D. VISIT COUNT (12 MO.) 2 [facility] 3 [facility] 11 [facility] TOTAL 16 NOTE: Visits indicate total known visits. ED/UCC VISIT TRACKING (12 MO.) 03/14/2019 17:21 [facility] [place] TYPE: Emergency COMPLAINT: - COUGH 03/01/2019 17:22 [facility] [place] TYPE: Emergency COMPLAINT: - L FINGER INJURY DIAGNOSES: - Unspecified injury of left wrist, hand and finger(s), subsequent encounter - Striking against or struck by other objects, subsequent encounter 02/28/2019 14:24 [facility] [place] TYPE: Emergency COMPLAINT: - LEFT RING FINGER INJURY DIAGNOSES: - Allergy status to narcotic agent status - Nondisplaced fracture of distal phalanx of left ring finger, initial encounter for closed fracture - Type 2 diabetes mellitus without complications - Pain in right finger(s) - Allergy status to penicillin - Other terminal gauger supervisor (current) drug therapy - Bipolar disorder, unspecified - Caught, crushed, jammed, or pinched between moving objects, initial encounter - Unspecified asthma, uncomplicated 02/05/2019 12:34 [facility] [place] TYPE: Emergency DIAGNOSES: - Unspecified fall [...] Cough - Bipolar disorder, unspecified - Other assisted (current) drug therapy 12/19/2018 22:41 [facility] [place] TYPE: Emergency COMPLAINT: - L ELBOW PAIN/INJURY DIAGNOSES: - Pain in left elbow - Unspecified sprain of left elbow, initial encounter - Unspecified asthma, uncomplicated - Bipolar disorder, unspecified - Other assisted (current) drug therapy - Allergy status to [...] complications - Unspecified asthma, uncomplicated - Other assisted (current) drug therapy - Acute pharyngitis, unspecified - nursing home (current) use of systemic steroids 11/02/2018 08:23 [facility] [place] TYPE: Emergency COMPLAINT: - ABD PAIN DIAGNOSES: - Other chronic pain - Right lower quadrant pain - Bipolar disorder, unspecified - Other terminal gauger supervisor (current) drug therapy - Allergy status to narcotic agent status - Allergy status to penicillin - Allergy status to other antibiotic agents status - Unspecified asthma, uncomplicated - Type 2 diabetes mellitus without complications 08/15/2018 15:07 [facility] [place] TYPE: Emergency COMPLAINT: - CONGESTION DIAGNOSES: - Allergy status to penicillin - Type 2 diabetes mellitus without complications - Other assisted (current) drug therapy - Cough - Acute bronchitis, unspecified - Allergy status to other antibiotic agents status 08/11/2018 21:44 [facility] TYPE: Emergency COMPLAINT: - VOMITING BLOOD DIAGNOSES: - Other specified respiratory disorders - Allergy status to narcotic agent status - Otitis media, unspecified, left ear - Allergy status to other antibiotic agents status - Acute pharyngitis, unspecified - Allergy status to penicillin - Acute sinusitis, unspecified - Other viral agents as the cause of diseases classified elsewhere - Other terminal gauger supervisor (current) drug therapy - Type 2 diabetes mellitus without complications [facility]2018 [facility] DIAGNOSES: - Vaginal Bleeding - Abnormal uterine and vaginal bleeding, unspecified - vaginal bleed - Pelvic and perineal pain 06/22/2018 19:29 [facility] [place] TYPE: Emergency COMPLAINT: - VAGINAL BLEEDING/1 MONTH PREG DIAGNOSES: - Other assisted (current) drug therapy - Less than 8 [...] - Nicotine dependence, unspecified, uncomplicated 05/01/2018 [facility] DIAGNOSES: - rt side back pain - Abdominal Pain - Flank Pain - Unspecified abdominal pain 04/28/2018 17:01 [facility] DIAGNOSES: - Abdominal Pain - Pelvic Pain - Pelvic and perineal pain 04/27/2018 17:36 [facility] [place] TYPE: Emergency COMPLAINT: - ABD PAIN/BACK PAIN DIAGNOSES: - Allergy status to other antibiotic agents status - Personal history of nicotine dependence - Unspecified asthma, uncomplicated - Allergy status to penicillin - Allergy status to narcotic agent status - Type 2 diabetes mellitus without complications - Pelvic and perineal pain - Other assisted (current) drug therapy - Bipolar disorder, unspecified 04/14/2018 14:35 [facility] [place] TYPE: Emergency COMPLAINT: - KIDNEY PAIN INPATIENT VISIT TRACKING (12 MO.) No inpatient visits to display in this time frame [id number]
[2019-03-14] MEDS ORDERED: DOXYCYCLINE MO100 MG PO (17:35)
[2019-03-14] MEDS ORDERED: DOXEPIN HCL10 MG PO (17:35)
[2019-03-14] MEDS ORDERED: ULTRAM50 MG PO (17:35)
[2019-03-14] MEDS ORDERED: FLUCELVAX60 MCG/0.4 IM (17:36)
[2019-03-14] MEDS ORDERED: TESSALON PERLE100 MG PO (18:22)
[2019-03-14] MEDS ORDERED: PREDNISONE20 MG PO (18:22)
== END 2019-03-14 18:32 | disposition home or self-care (01) ==
LOC: ED 17:20
DX: J45.909 Unspecified asthma, uncomplicated (principal); J06.9 Acute upper respiratory infection, unspecified; E11.9 Type 2 diabetes mellitus without complications; F31.9 Bipolar disorder, unspecified; Z87.891 Personal history of nicotine dependence; Z88.0 Allergy status to penicillin; Z88.5 Allergy status to narcotic agent; Z79.899 Other long term (current) drug therapy
CPT/HCPCS: 71046; 87081; 87880; 94640; 99283-25; J1100

== ENCOUNTER 2019-03-29 09:23 | Emergency (ER) | payer OTHER ==
[~2019-03-29] VITALS: Ht 165.1 cm; Wt 116.1 kg
[~2019-03-29 09:23] MED LIST changes: +DOXEPIN HCL10 MG PO; +DOXYCYCLINE MO100 MG PO; +FLUCELVAX60 MCG/0.4 IM; +TESSALON PERLE100 MG PO
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
== END 2019-03-29 10:35 | disposition home or self-care (01) ==
LOC: ED 09:23
PROC: 0HQ1XZZ Repair Face Skin, External Approach (ICD-10-PCS; principal; 2019-03-29)
DX: S01.81XA Laceration without foreign body of other part of head, initial encounter (principal); Y04.8XXA Assault by other bodily force, initial encounter; E11.9 Type 2 diabetes mellitus without complications; F31.9 Bipolar disorder, unspecified; Z87.891 Personal history of nicotine dependence; Z88.0 Allergy status to penicillin; Z88.5 Allergy status to narcotic agent; Z79.899 Other long term (current) drug therapy
CPT/HCPCS: 12013; 99283-25

== ENCOUNTER 2019-04-05 17:26 | Emergency (ER) | payer OTHER ==
[~2019-04-05] VITALS: Ht 165.1 cm; Wt 116.4 kg
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
== END 2019-04-05 18:25 | disposition home or self-care (01) ==
LOC: ED 17:26
DX: O99.89 Other specified diseases and conditions complicating pregnancy, childbirth and the puerperium (principal); N39.8 Other specified disorders of urinary system; Z3A.01 Less than 8 weeks gestation of pregnancy; O24.111 Pre-existing type 2 diabetes mellitus, in pregnancy, first trimester; E11.9 Type 2 diabetes mellitus without complications; O99.341 Other mental disorders complicating pregnancy, first trimester; F31.9 Bipolar disorder, unspecified; Z87.891 Personal history of nicotine dependence; Z88.0 Allergy status to penicillin; Z88.5 Allergy status to narcotic agent; Z79.899 Other long term (current) drug therapy
CPT/HCPCS: 99283

== ENCOUNTER 2019-04-26 03:45 | Emergency (ER) | payer OTHER ==
[~2019-04-26] VITALS: Ht 165.1 cm; Wt 116.4 kg
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
[2019-04-26] MEDS ORDERED: LATUDA20 MG PO (03:59)
== END 2019-04-26 05:10 | disposition home or self-care (01) ==
LOC: ED 03:45
DX: O99.89 Other specified diseases and conditions complicating pregnancy, childbirth and the puerperium (principal); R10.9 Unspecified abdominal pain; Z3A.01 Less than 8 weeks gestation of pregnancy; O24.111 Pre-existing type 2 diabetes mellitus, in pregnancy, first trimester; O99.341 Other mental disorders complicating pregnancy, first trimester; F31.9 Bipolar disorder, unspecified; Z87.891 Personal history of nicotine dependence; Z79.899 Other long term (current) drug therapy
CPT/HCPCS: 81001; 99284

== ENCOUNTER 2019-05-04 08:41 | Day surgery (SDC) | payer OTHER ==
[~2019-05-04] VITALS: Ht 165.1 cm; Wt 117.9 kg
[~2019-05-04 08:41] MED LIST changes: +LATUDA20 MG PO
--- NOTE | 2019-05-04 10:52 | NUR ---
05/04/19 1052 Zarina Esparza 1046 PATIENT ARRIVES TO PACU UNRESPONSIVE TO VERBAL STIMULI. RESP EVEN AND UNLABORED, ORAL AIRWAY IN PLACE, MASK AT 6 LITERS. 1050 PATIENT OPENS EYES TO VERBAL STIMULI, FOLLOWS COMMANDS, OPENS MOUTH, ORAL AIRWAY REMOVED. RESP EVEN AND UNLABORED, MASK CONTINUED AT 6 LITERS. PATIENT BACK TO SLEEP.
--- NOTE | 2019-05-04 11:41 | NUR ---
PATIENT BACK IN DAY SURGERY ROOM FROM PACU. PATIENT CRYING, C/O PAIN 8/[address]EN[address]IPAD [address] PL[address] WITH SCANT RED DRAINAGE. IV WNL. VS CHECKED. SCDs ON. CALL LIGHT WITHIN REACH. FAMILY MEMBER AT BEDSIDE.
[2019-05-04] MEDS ORDERED: IBUPROFEN800 MG PO (11:49)
--- NOTE | 2019-05-04 12:43 | NUR ---
1215: PATIENT MEDICATED FOR PAIN WITH 2 TABS OF NORCO PER REQUEST. PATIENT ASSISTED OOB AND TO BATHROOM. GAIT STEADY. ABLE TO VOID APPROXIMATELY 200 ML. GAIT STEADY BACK TO ROOM. 1225: VS CHECKED. IV DC'D WNL. TIP INTACT. DRESSING APPLIED. DISCHARGE INSTRUCTIONS GIVEN TO PATIENT. 1230: PATIENT DISCHARGE TO HOME WITH FATHER VIA WHEELCHAIR.
--- NOTE | 2019-05-04 23:33 | OR ---
[facility] [address] [place] [address] Signed DATE OF OPERATION: 05/04/2019 SURGEON: Ry Abarca MD PREOPERATIVE DIAGNOSIS: Missed . POSTOPERATIVE DIAGNOSIS: Missed . PROCEDURE: Suction D and C. ANESTHESIA: MAC. ESTIMATED BLOOD LOSS: 100 mL. SPECIMEN: Uterine contents. FINDINGS: Cervix closed. Uterus 6 weeks size with the cavity sounding to 11 cm. It was normal in shape. No adnexal masses palpable. There was a small amount of normal-appearing tissue within the cavity. COMPLICATIONS: None. DESCRIPTION OF PROCEDURE: The patient was brought into the operating room and placed in supine position. After adequate MAC was obtained, the patient was placed in the dorsal lithotomy position, prepped and draped in the usual sterile fashion. Weighted speculum was placed in the vagina and the anterior lip of the cervix was grasped with an Allis clamp. Uterine cavity was then sounded and the cervix serially dilated up to an 8-Maltese dilator. A #8 curved suction tip curette was attached to the suction machine and the suction tested to make sure that good suction of right range was obtained. At this point, the suction tip was carefully introduced into the uterine cavity up to the fundus and then the suction applied as uterine curette was scraped in a 360-degree fashion, Electronically Signed By: RY ABARCA MD 05/04/19 2333 PATIENT NAME: CARLOS TABORA NATIVIDAD OPERATIVE REPORT DATE OF : 89 REPORT #: [id number] PHYSICIAN: RY ABARCA MD PCP: MARIA TERESA ALBARADO MD REPORT IS CONFIDENTIAL AND NOT TO BE RELEASED WITHOUT AUTHORIZATION [facility] [address] [place], [place] [address], [place] [address] Signed removing abnormal-appearing tissue. This was repeated and then individually scraped in a 360-degree fashion, carefully extending the curette to the fundus and only applying the suction on the way back toward the cervix and stopping before removing from the cervix. At this point, no additional tissue was removed. All instruments were removed from the vagina, and the uterus palpated and noted to be smaller and more firm. The speculum was placed back in the vagina and cervix was noted to have good hemostasis, so procedure was stopped. The patient tolerated the procedure well and went to recovery room in good condition. Sponge and instrument count correct at the end of the procedure. The uterine products of conception were sent to Pathology for identification. MD RUTHANN Dougherty/MODL /[id number] Copies: ~ Electronically Signed By: RY ABARCA MD 05/04/19 2333 PATIENT NAME: ANJEL TABOR OPERATIVE REPORT DATE OF : 89 REPORT #: [id number] PHYSICIAN: RY ABARCA MD PCP: MARIA TERESA ALBARADO MD REPORT IS CONFIDENTIAL AND NOT TO BE RELEASED WITHOUT AUTHORIZATION
== END 2019-05-04 12:30 | disposition home or self-care (01) ==
LOC: OPS 08:41 → DS 08:41 → OPS 12:00 → DS 12:00 → OPS 12:30
PROVIDERS: General Practice
PROC: 10D17ZZ Extraction of Products of Conception, Retained, Via Natural or Artificial Opening (ICD-10-PCS; principal; 2019-05-04 12:00)
DX: O02.1 Missed abortion (principal); M54.5 Low back pain; G89.29 Other chronic pain; E66.01 Morbid (severe) obesity due to excess calories; E11.9 Type 2 diabetes mellitus without complications; F32.9 Major depressive disorder, single episode, unspecified; F41.0 Panic disorder [episodic paroxysmal anxiety]; G43.909 Migraine, unspecified, not intractable, without status migrainosus; K21.9 Gastro-esophageal reflux disease without esophagitis; F12.90 Cannabis use, unspecified, uncomplicated; J45.909 Unspecified asthma, uncomplicated; Z88.0 Allergy status to penicillin; Z88.5 Allergy status to narcotic agent; Z68.43 Body mass index [BMI] 50.0-59.9, adult
CPT/HCPCS: 00952; J1100; J1885; J2250; J2405; J2550; J2590; J2704; J2765; J3010; J7120

== ENCOUNTER 2019-05-06 14:44 | Emergency (ER) | payer OTHER ==
[~2019-05-06] VITALS: Ht 165.1 cm; Wt 122.2 kg
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
[2019-05-06] MEDS ORDERED: NORCO 5-325 TA1 EACH PO (17:49)
[2019-05-06] MEDS ORDERED: ZOFRAN4 MG SL (17:49)
== END 2019-05-06 18:11 | disposition home or self-care (01) ==
LOC: ED 14:44
DX: G89.18 Other acute postprocedural pain (principal); R10.30 Lower abdominal pain, unspecified; E11.9 Type 2 diabetes mellitus without complications; Z87.891 Personal history of nicotine dependence; Z90.49 Acquired absence of other specified parts of digestive tract; Z88.0 Allergy status to penicillin; Z88.5 Allergy status to narcotic agent
CPT/HCPCS: 76830; 76856; 80053; 81001; 83690; 84702; 85025; 96361; 96374; 96375; 99284-25; J2270; J2405; J7030

== ENCOUNTER 2019-05-12 22:36 | Emergency (ER) | payer OTHER ==
[~2019-05-12] VITALS: Ht 165.1 cm; Wt 119.8 kg
[~2019-05-12 22:36] MED LIST changes: +ZOFRAN4 MG SL
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
[2019-05-12] MEDS ORDERED: ACETAMINOPHEN500 MG PO (23:25)
[2019-05-12] MEDS ORDERED: LATUDA60 MG PO (23:25)
[2019-05-12] MEDS ORDERED: LAMOTRIGINE25 MG PO (23:27)
[2019-05-12] MEDS ORDERED: STRATTERA25 MG PO (23:28)
[2019-05-13] MEDS ORDERED: CLINDAMYCIN HC300 MG PO (01:59)
[2019-05-13] MEDS ORDERED: NORCO 5-325 TA1 EACH PO (01:59)
== END 2019-05-13 02:25 | disposition home or self-care (01) ==
LOC: ED 22:36
DX: N71.9 Inflammatory disease of uterus, unspecified (principal); E11.9 Type 2 diabetes mellitus without complications; F31.9 Bipolar disorder, unspecified; F90.9 Attention-deficit hyperactivity disorder, unspecified type; Z90.49 Acquired absence of other specified parts of digestive tract; Z88.0 Allergy status to penicillin; Z88.5 Allergy status to narcotic agent; Z79.899 Other long term (current) drug therapy
CPT/HCPCS: 80053; 81001; 83605; 85025; 96365; 96375; 99284-25; J1170; J2405; J7030

== ENCOUNTER 2019-05-24 00:37 | Emergency (ER) | payer OTHER ==
[~2019-05-24] VITALS: Ht 165.1 cm; Wt 119.8 kg
[~2019-05-24 00:37] MED LIST changes: +ACETAMINOPHEN500 MG PO; +CLINDAMYCIN HC300 MG PO; +LATUDA60 MG PO; +STRATTERA25 MG PO
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
[2019-05-24] MEDS ORDERED: TRAMADOL HCL50 MG PO (01:05)
[2019-05-24] MEDS ORDERED: CEPHALEXIN500 MG PO (01:05)
== END 2019-05-24 01:14 | disposition home or self-care (01) ==
LOC: ED 00:37
DX: K08.89 Other specified disorders of teeth and supporting structures (principal); E11.9 Type 2 diabetes mellitus without complications; F31.9 Bipolar disorder, unspecified; F17.200 Nicotine dependence, unspecified, uncomplicated; Z88.0 Allergy status to penicillin; Z88.5 Allergy status to narcotic agent; Z79.899 Other long term (current) drug therapy
CPT/HCPCS: 99282

== ENCOUNTER 2019-08-03 14:02 | Emergency (ER) | payer OTHER ==
[~2019-08-03] VITALS: Ht 165.1 cm; Wt 123.4 kg
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
[2019-08-03] MEDS ORDERED: LAMICTAL (ORAN1 EACH PO (14:28)
[2019-08-03] MEDS ORDERED: MORPHINE SULFAT15 MG PO (16:58)
[2019-08-03] MEDS ORDERED: ZOFRAN4 MG PO (16:58)
== END 2019-08-03 17:09 | disposition home or self-care (01) ==
LOC: ED 14:02
DX: N83.201 Unspecified ovarian cyst, right side (principal); E11.9 Type 2 diabetes mellitus without complications; F32.9 Major depressive disorder, single episode, unspecified; F31.9 Bipolar disorder, unspecified; F90.9 Attention-deficit hyperactivity disorder, unspecified type; F17.200 Nicotine dependence, unspecified, uncomplicated; Z88.0 Allergy status to penicillin; Z88.5 Allergy status to narcotic agent; Z79.899 Other long term (current) drug therapy
CPT/HCPCS: 76830; 76856; 80053; 81001; 84703; 85025; 96374; 96375; 99284-25; 99406; J1170; J1885; J2405

== ENCOUNTER 2019-11-16 05:35 | Day surgery (SDC) | payer OTHER ==
[~2019-11-16] VITALS: Ht 165.1 cm; Wt 125.6 kg
[~2019-11-16 05:35] MED LIST changes: +LAMICTAL (ORAN1 EACH PO; +MORPHINE SULFAT15 MG PO; +ZOFRAN4 MG PO
--- NOTE | 2019-11-16 06:17 | NUR ---
PATIENT TO ROOM, WARM BLANKET AND PRE-OP WIPES PROVIDED. ASSESMENT DONE. VS STABLE. LR TKO TO LEFT HAND. CALL LIGHT WITHIN REACH. NO OTHER NEEDS AT THIS TIME.
--- NOTE | 2019-11-16 10:26 | NUR ---
11/16/19 1026 Melva Kang 1021- PT ARRIVES TO PACU NONAROUSABLE TO NOXIOUS STIMULI. RESP EVEN AND UNLABORED. PT NEEDED SOME HEAD POSITIONED TO KEEP FROM SNORING. SNORING CLEARED WITH HEAD TURNED TOWARDS THE LEFT. OXYGEN SAT HIGH 90'S TO 100% ON 6L VIA MASK.
--- NOTE | 2019-11-16 12:46 | NUR ---
IV PHENERGAN RESOLVED DRY HEAVING, PATIENT REPORTS PAIN IMPROVED. NOW EATING APPLESAUCE AND TIGRE CRACKERS AND TOLERATING DRINKING FLUIDS. VS STABLE. ADMINISTERED 1 TAP PERCOCET, FOR PAIN 6/10 ON PAIN SCALE. PATIENT ASKING TO GET UP TO BATHROOM WHEN PAIN CONTROLLED.
--- NOTE | 2019-11-16 13:15 | NUR ---
BERRIOS REMOVED, PATIENT UP TO BATHROOM. STEADY ON FEET. CHANGED LINEN. PATIENT REPORTED NAUSEA WITH LIGHTHEADNESS RETURNING TO ROOM. PAIN INCREASED TO 9 FROM PAIN LEVEL OF 5 OUT OF TEN AT REST. BACK TO BED, MOTHER AT BEDSIDE. SCRIPT SENT WITH FAMILY MEMEBER TO BE FILLED. VS STABLE. PLANNED WITH PATIEN TO GET UP AGAIN IN 20 MINUTES AND ATTEMPT BATHROOM AGAIN.
--- NOTE | 2019-11-16 14:44 | NUR ---
PATIENT UP TO BATHROOM VOIDED 100 ML OF YELLOW URINE. TOLERATING ACTIVITY WELL. PAIN WELL CONTROLLED 4/10 ON PAIN SCALE. DRINKING AND EATING WELL, NO N/V. PROVIDED DC INSTRUCTION WITH MOM IN ROOM AT BEDSIDE. ANSWERED QUESTIONS AND CONCERNS. VS STABLE. RIDE COMING FROM [facility]. PATIENT DRESSED WAITING FOR RIDE, IV DC'D.
--- NOTE | 2019-11-17 11:50 | OR ---
[facility] [address] [place], [place] [address] Signed DATE OF OPERATION: 11/16/2019 SURGEON: Ry Abarca MD Patient of Dr. Abarca. PREOPERATIVE DIAGNOSES: Pelvic pain, dysmenorrhea, dyspareunia, and endometriosis. POSTOPERATIVE DIAGNOSES: Pelvic pain, endometriosis of pelvic peritoneum, dysmenorrhea, and dyspareunia. PROCEDURES PERFORMED: Total laparoscopic hysterectomy, right salpingectomy, and cystoscopy. MACHINE II ENGRAVER: Dr. Nogueira. ANESTHESIA: General. ESTIMATED BLOOD LOSS: 75 mL. SPECIMEN: Uterus and right fallopian tube. DRAINS: Martinez to bladder. FINDINGS: Normal cervix. Normal size and shape of the uterus. The anterior cul-de-sac had few adhesions in the midline from previous section, but the bladder did not seem to be elevated over the lower uterine segment. Posterior cul-de-sac had a few dark spots of endometriosis in the midline right at the base of the posterior cervix. No adhesions present. The left tube and ovary were gone. There were no adhesions present. The right tube was normal in length and normal-appearing fimbriated end. The right ovary is normal size and shape without any evidence of endometriosis or adhesions. The liver and gallbladder appeared normal. The rest of the abdomen was free of any masses or adhesions. Electronically Signed By: RY ABARCA MD 11/17/19 1150 PATIENT NAME: TABORANJELFRANCO HENSON OPERATIVE REPORT DATE OF : 89 REPORT #: [id number] PHYSICIAN: RY ABARCA MD PCP: ROSALBA SNOW MD REPORT IS CONFIDENTIAL AND NOT TO BE RELEASED WITHOUT AUTHORIZATION [facility] [address], [place] [address] Signed DESCRIPTION OF PROCEDURE: The patient was brought to the operating room, placed in supine position. After adequate general anesthesia was obtained, was placed in dorsal lithotomy position, prepped and draped in usual sterile fashion. A Martinez catheter was placed in the bladder and a weighted speculum placed in the vagina and the anterior lip of the cervix grasped with an Allis clamp. Uterine cavity sounded to 8 cm. Cervix was serially dilated and then the WolfGIS uterine manipulator carefully inserted into the fundus of the uterus. The balloon filled with water and after removal of the Allis clamp and weighted speculum, the cervical cap was slid up against the cervix and the vaginal cup slid up and tightened in place to hold the cervical cap against the cervix. Attention was then drawn to the abdomen. A small infraumbilical skin incision was made after injecting the area with 0.25% Marcaine with epinephrine. Subcutaneous tissue was dissected with Metzenbaum scissors. Even just below the umbilicus, patient had quite a lot of adipose tissue and after several minutes trying to dissect down and because of previous laparoscopes, I could not adequately identify the fascia and with the adipose tissue there, I could not be certain of entering the abdomen and having possible omental adhesions right in the area of dissection. Because of the difficulty entering infraumbilically, direct entry scope was made at Junior's point. After again injecting the area with local anesthesia and making a small skin incision, the direct entry trocar and sleeve with 5 mm scope was placed usp on the left side of the upper abdomen and usp between the xiphoid and the lateral edge of the rib, just below the lower rib. Gas was attached to the direct entry scope and as the scope was inserted, gas allowed to fill the abdomen. The trocar was removed and laparoscope inserted and the infraumbilical area examined and noted to have no adhesions and the incision had not been brought all the way through. Then, under direct visualization, the peritoneum was bluntly opened in the infraumbilical incision and the Nikki trocar and sleeve entered the abdomen and the balloon filled with air and the trocar removed. During entry into the abdomen, in the infraumbilical space, some moderate bleeding was noted. This was controlled with the balloon in the upper portion of the port compressing the incision and tamponading any bleeding. So, it was decided to recheck for bleeding at the end of the case since there was no bleeding at this time. The 10 mm scope was then used in the infraumbilical port and then a 5 mm port placed on the left lateral side just below the level of the umbilicus. This site was again injected with 0.25% Marcaine with epinephrine. A small skin incision made and a bladed 5 mm trocar and sleeve entered the abdomen under direct visualization. Trocar was removed and the blunt grasper inserted. On the right side, again approximately 10 cm lateral to the midline and just below the level of the umbilicus, the skin was injected with 0.25% Marcaine with epinephrine and a skin incision made. On this side, a Veress needle with expandable sleeve was placed in the abdomen under direct visualization. The Veress needle removed and the expanding 12 mm port placed through Electronically Signed By: RY ABARCA MD 11/17/19 1150 PATIENT NAME: ANJEL TABOR OPERATIVE REPORT DATE OF : 89 REPORT #: [id number] PHYSICIAN: RY ABARCA MD PCP: ROSALBA SNOW MD REPORT IS CONFIDENTIAL AND NOT TO BE RELEASED WITHOUT AUTHORIZATION [facility] [address], [place] [address] Signed the expandable sleeve. The trocar was removed and this port used for blunt graspers also. The above findings were noted. The LigaSure bipolar [place] forceps were then used for the dissection. The left round ligament was cauterized in several places and cut and then the anterior and posterior leaves of the broad ligament separately cauterized and cut down the length of the broad ligament extending to the midline at the level of the cervical cap and the anterior cul-de-sac peritoneum bluntly pushed down away to help keep the bladder away from the area of dissection. Uterine vessels were exposed and they were cauterized in several places and cut. The paracervical tissue was cauterized and cut within the cervical cap that could be palpated on the left side to the midline. The right side was then done by cauterizing and cutting the mesosalpinx from the fimbriated end down to the proximal portion of the fallopian tube, which was then cauterized across the tube and transected and the tube pulled through the right lateral port. The round ligament was cauterized in several places and cut and then the uteroovarian ligament cauterized in several places and cut. The broad ligament was then opened anterior and posteriorly and extended down to the previous dissection in the midline. This exposed the uterine vessels, which were cauterized in several places and cut. The paracervical tissue was cauterized and cut again inside the cervical cap, which could be palpated. At this point, the Sonicision was used to cut through the vaginal mucosa in the groove of the cup in the posterior cul-de-sac and this was extended through the groove of the cervical cap from posterior to anterior on the left side and then posterior to anterior on the right side the cervix. The uterine manipulator was then carefully removed through the vagina with uterus still attached and a sponge filled glove placed in the vagina to hold the pneumoperitoneum. Attention was drawn back to the abdomen. The pelvis was re-insufflated and the entire pelvis was irrigated, suctioned, and examined, noted to have good hemostasis. At this point, the Endo Stitch with barbed suture was used to close the cuff starting at the right uterosacral ligament and individually grasping the vaginal mucosal edge and putting the stitch through posterior and then anterior at the angle with the first stitch running the stitch through the looped end of the barbed suture. The cuff was then closed running from right to left individually grasping the posterior edge from posterior to anterior and then the anterior edge from posterior to anterior and running across to the left uterosacral ligament. Upon this closure, the closure was reinforced by continuing the barbed suture back towards the middle in the combined cuff staying distal to the previous dissection. The suture was then cut with laparoscopic sutures. The entire pelvis irrigated, suctioned, examined, noted to have good hemostasis. Tisseel was sprayed over the entire dissection to help with further hemostasis. At this point, the infraumbilical sleeve was removed and again noted to have moderate bleeding within the area. The Allis clamps and Maria D's were used to grasp the edges of the fascia which could then be identified and the fascia closed usp across bleeding spot could still not be identified, so the skin incision was Electronically Signed By: RY ABARCA MD 11/17/19 1150 PATIENT NAME: ANJEL TABOR OPERATIVE REPORT DATE OF : 89 REPORT #: [id number] PHYSICIAN: RY ABARCA MD PCP: ROSALBA SNOW MD REPORT IS CONFIDENTIAL AND NOT TO BE RELEASED WITHOUT AUTHORIZATION [facility] [address], [place] [address] Signed extended slightly and the adipose tissue dissected away from the fascia, which was still grasped at the corner and at the edges. The area was irrigated, suctioned, and examined above and below the fascial edges. Finally, one small vessel was noted to be briskly bleeding. Small vessel was noted just under the fascia just to the right of midline. This was grasped with hemostat, cauterized, and then a [id number] stitch of 0 Vicryl suture placed around this for further control of bleeding. With this controlled, the area was irrigated, suctioned, and examined noted to have good hemostasis. The fascia was then closed the rest of the way. The abdomen was refilled with CO2 and 5-mm trocar placed and the infraumbilical trocar site was examined in the abdomen and noted to have good closure and good hemostasis. At this point, all the gas was allowed to escape and all sleeves removed. The infraumbilical subcutaneous tissue was closed with 2-0 Vicryl suture and then all incisions closed with 4-0 Vicryl in subcuticular stitches. The glove was removed from the vagina and the Martinez catheter removed. The cystoscope was then carefully placed through the urethra into the bladder with sterile water as a distending medium. The bladder filled well. There was no defects noted. No sutures noted. Both ureters were seen to have good flow and good jets of urine and so the bladder was drained and the Martinez was placed back into the bladder. The patient tolerated the procedure well and went to recovery room in good condition. The sponge, needle, and instrument count correct at the end of the procedure. Uterus and right fallopian tube were sent to Pathology for identification. Ry Abarca MD MJB/MODL /[id number] Copies: ~ Electronically Signed By: RY ABARCA MD 11/17/19 1150 PATIENT NAME: ANJEL TABOR OPERATIVE REPORT DATE OF : 89 REPORT #: [id number] PHYSICIAN: RY ABARCA MD PCP: ROSALBA SNOW MD REPORT IS CONFIDENTIAL AND NOT TO BE RELEASED WITHOUT AUTHORIZATION
--- NOTE | 2019-11-20 15:23 | PATH ---
[facility] [address], [place] [address] Signed SPECIMEN(S): A UTERUS, CERVIX AND RIGHT TUBE SPECIMEN SOURCE: A. UTERUS, CERVIX AND RIGHT TUBE CLINICAL HISTORY: Deep dyspareunia, pelvic pain, endometriosis. FINAL PATHOLOGIC DIAGNOSIS: Uterus, cervix, and right fallopian tube, hysterectomy and unilateral salpingectomy: - Cervix: No histopathologic abnormality. - Endometrium: Early secretory phase endometrium. - Myometrium: No histopathologic abnormality. - Serosa: Endometriosis. - Right fallopian tube: Benign paratubal cyst. - Negative for malignancy. NAL:emb:C2NR MICROSCOPIC EXAMINATION: Histologic sections of all submitted blocks are examined by light microscopy. These findings, together with the gross examination, support the pathologic diagnosis. GROSS DESCRIPTION: The specimen is received in a formalin filled specimen container labeled "DJ". A 75 g, intact uterus and cervix is 8.2 x 4.0 x 3.5 cm. The serosa is glistening and diaz with scant surface adhesions. The ectocervix is smooth and pale pink. The os and endocervical canal are patent. The endometrium is flat, pink-diaz and averages 0.2 cm. The dense diaz myometrium is up to 1.5 cm and is without nodule or induration. Separate in the specimen container is a purple diaz fallopian tube with free and delicate fimbriated end, 6.0 x 0.6 cm. A workforce services representative cross-section and the entire longitudinally sectioned fimbriated end are submitted. Summary of sections: (A1) Serosa (A2) Anterior and posterior cervix (A3 and A4) Anterior endomyometrium (A5 and A6) Posterior endomyometrium (A7) Fallopian tube PATIENT NAME: ANJEL TABOR PATHOLOGY DATE OF : 89 REPORT #: [id number] PHYSICIAN: FARA PATHOLOGY PCP: ROSALBA SNOW MD REPORT IS CONFIDENTIAL AND NOT TO BE RELEASED WITHOUT AUTHORIZATION [facility] [address] [address] Signed GW (under the direct supervision of a pathologist) The Gross Description was prepared using a voice recognition system. The report was reviewed for accuracy; however, sound-alike word errors, addition and/or deletions may occur. If there is any question about this report, please contact Client Services. PERFORMING LABORATORY: The technical component was performed by [facility] [address] (Electromedical Equipment Repairer: Allison Sheffield MD; CLIA# [id number]). Professional interpretation [facility] by [facility], [address] [address] (Electromedical Equipment Repairer: Benitez Murphy MD; CLIA# [id number]). Diagnostician: Bharati Monroy MD Pathologist Electronically Signed 11/20/2019 Copies: ~ PATIENT NAME: ANJEL TABOR PATHOLOGY DATE OF : 89 REPORT #: [id number] PHYSICIAN: FARA CRESPO PCP: ROSALBA SNOW MD REPORT IS CONFIDENTIAL AND NOT TO BE RELEASED WITHOUT AUTHORIZATION
== END 2019-11-16 14:40 | disposition home or self-care (01) ==
LOC: OPS 05:35 → DS 05:35 → OPS 06:45 → DS 08:15 → OPS 14:40
PROVIDERS: General Practice
PROC: 0UT94ZZ Resection of Uterus, Percutaneous Endoscopic Approach (ICD-10-PCS; principal; 2019-11-16 06:45)
PROC: 0UT54ZZ Resection of Right Fallopian Tube, Percutaneous Endoscopic Approach (ICD-10-PCS; 2019-11-16 06:45)
DX: N80.0 Endometriosis of uterus (principal); N83.8 Other noninflammatory disorders of ovary, fallopian tube and broad ligament; N94.12 Deep dyspareunia; N94.5 Secondary dysmenorrhea; F31.9 Bipolar disorder, unspecified; M54.5 Low back pain; G89.29 Other chronic pain; J45.909 Unspecified asthma, uncomplicated; F12.90 Cannabis use, unspecified, uncomplicated; F41.9 Anxiety disorder, unspecified; E66.01 Morbid (severe) obesity due to excess calories; Z90.721 Acquired absence of ovaries, unilateral; Z90.79 Acquired absence of other genital organ(s); Z87.891 Personal history of nicotine dependence; Z88.0 Allergy status to penicillin; Z88.6 Allergy status to analgesic agent; Z68.42 Body mass index [BMI] 45.0-49.9, adult
CPT/HCPCS: 00840; 88307; J0131; J0330; J0690; J1100; J1170; J1644; J1885; J2250; J2405; J2550; J2704; J3010; J7121

== ENCOUNTER 2019-11-19 09:21 | Emergency (ER) | payer OTHER ==
[~2019-11-19] VITALS: Ht 165.1 cm; Wt 125.6 kg
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
[2019-11-19] MEDS ORDERED: ONDANSETRON ODT8 MG PO (09:35)
[2019-11-19] MEDS ORDERED: PERCOCET 5-3251 EACH PO (09:35)
== END 2019-11-19 09:39 | disposition home or self-care (01) ==
LOC: ED 09:21
DX: G89.18 Other acute postprocedural pain (principal); E11.9 Type 2 diabetes mellitus without complications; F31.9 Bipolar disorder, unspecified; Z87.891 Personal history of nicotine dependence; Z88.0 Allergy status to penicillin; Z88.8 Allergy status to other drugs, medicaments and biological substances; Z88.5 Allergy status to narcotic agent
CPT/HCPCS: 99283